=== PATIENT | female | born 1970 | race Caucasian/White ===

== ENCOUNTER 2022-01-23 12:39 | Outpatient (CLI) | payer MEDICAID, SELFPAY ==
[2022-01-23 14:34] LABS: Cholesterol* 188 mg/dL (90-199)
[2022-01-23 14:35] LABS: HDL Cholesterol* 46 mg/dL (>=50); LDL Cholesterol Calculated 116 mg/dL (<100); Triglycerides* 130 mg/dL (40-149)
[2022-01-23 15:07] LABS: TSH With Reflex to FT4* 0.581 uIU/mL (0.270-4.200)
[2022-01-23 19:20] LABS: Glucose* 109 mg/dL (60-115)
== END 2022-01-23 12:40 | disposition home or self-care (01) ==
PROVIDERS: Visit Provider Physician Assistant
DX: Z01.419 Encounter for gynecological examination (general) (routine) without abnormal findings (principal); E03.9 Hypothyroidism, unspecified; E66.01 Morbid (severe) obesity due to excess calories; Z13.6 Encounter for screening for cardiovascular disorders; Z13.1 Encounter for screening for diabetes mellitus
CPT/HCPCS: 80061; 82947; 84443

== ENCOUNTER 2022-02-20 13:53 | Outpatient (CLI) | payer MEDICAID, SELFPAY ==
--- NOTE | 2022-02-20 14:00 | CRLHL7_ITS ---
For Patients: As a result of the Century Cures Act, medical imaging exams and procedure reports are released immediately into your electronic medical record. You may view this report before your referring provider. If you have questions, please contact your health care provider. BILATERAL SCREENING MAMMOGRAM WITH COMPUTER-AIDED DETECTION TECHNIQUE: CC and MLO views were obtained. These mammographic images have been obtained using full-field digital technique. These mammographic images were interpreted with the benefit of computer-aided detection. COMPARISON FILM: 05/12/19 FINDINGS: The breasts are almost entirely fatty IMPRESSION: There is no radiographic evidence for malignancy. ASSESSMENT: BI-RADS Category 1: Negative RECOMMENDATION: Routine screening mammogram in 1 year. A lay language report of this examination will be provided to the patient. Femi Faith M.D. Diagnostic Radiologist [email or web address] CHRISSY/valdez / be/Dictated by: Femi Faith MD @ 02/21/2022 12:27:00 PM (Electronically Signed)
== END 2022-02-20 13:54 | disposition home or self-care (01) ==
LOC: MAMMO 13:54
PROVIDERS: Visit Provider Physician Assistant
DX: Z12.31 Encounter for screening mammogram for malignant neoplasm of breast (principal)
CPT/HCPCS: 77063; 77067

== ENCOUNTER 2022-03-05 09:18 | Outpatient (CLI) | payer MEDICAID, SELFPAY ==
--- NOTE | 2022-03-05 12:04 | W.ANESCHARGE ---
Anesthesia Charges Start Date/Time Anesthesia Start Date: 03/05/22 Anesthesia Start Time: 10:25 Stop Date/Time Anesthesia Stop Date: 03/05/22 Anesthesia Stop Time: 11:00 Summary Emergency: No
--- NOTE | 2022-03-05 12:20 | W.ANESCHARGE ---
Anesthesia Charges Start Date/Time Anesthesia Start Date: 03/05/22 Anesthesia Start Time: 10:25 Stop Date/Time Anesthesia Stop Date: 03/05/22 Anesthesia Stop Time: 11:00 Summary Emergency: No
== END 2022-03-05 09:19 | disposition home or self-care (01) ==
LOC: OP CLINIC 09:19
PROVIDERS: Visit Provider Surgery
DX: Z12.11 Encounter for screening for malignant neoplasm of colon (principal)
CPT/HCPCS: 00811; 00812; 45378; J2704

== ENCOUNTER 2023-01-29 07:13 | Outpatient (CLI) | payer MEDICAID, SELFPAY ==
--- NOTE | 2023-01-29 07:15 | CRLHL7_ITS ---
For Patients: As a result of the Century Cures Act, medical imaging exams and procedure reports are released immediately into your electronic medical record. You may view this report before your referring provider. If you have questions, please contact your health care provider. CLINICAL HISTORY: RIGHT FLANK PAIN COMPARISON: none TECHNIQUE: Rosales scale and color Doppler images were acquired of the kidneys. FINDINGS: Sonographic images reveal a symmetric appearance of the kidneys. There is no evidence of hydronephrosis, mass or calculus. The right kidney measures 10.8cm in length and the left kidney measures 10.4cm in length. The renal cortex appears of normal thickness. Normal color Doppler images of both kidneys. IMPRESSION: Normal renal ultrasound. Dictated by Femi Faith MD @ 01/29/2023 9:23:13 AM (Electronically Signed)
--- NOTE | 2023-01-29 08:00 | CRLHL7_ITS ---
For Patients: As a result of the Cures Act, medical imaging exams and procedure reports are released immediately into your electronic medical record. You may view this report before your referring provider. If you have questions, please contact your health care provider. Indication: RIGHT SIDED FLANK PAIN WITH LEUKOCYTOSIS Technique: Abdomen 1 view. Comparison: None. Findings: Surgical clips are present in the right upper quadrant from cholecystectomy. The liver is prominent measuring 24 cm. No renal stones. Spleen mildly prominent measuring 13.7 cm. No pleural effusion. No bowel obstruction. Impression: Hepatosplenomegaly. No renal stones. Dictated by Femi Faith MD @ 01/29/2023 9:17:23 AM (Electronically Signed)
== END 2023-01-29 07:14 | disposition home or self-care (01) ==
PROVIDERS: PCP Emergency Medicine; Visit Provider Internal Medicine Endocrinology, Diabetes & Metabolism
DX: R10.9 Unspecified abdominal pain (principal)
CPT/HCPCS: 74018; 76775

== ENCOUNTER 2023-03-12 13:09 | Emergency (ER) | payer MEDICAID, SELFPAY ==
[2023-03-12 13:18] VITALS: BP 144/84; PULSE 88; RESP 18; TEMP 36.4; O2SAT 98; BMI 33.7
[2023-03-12 13:41] LABS: Appearance Urine Clear (Clear); Bilirubin Urine Negative (Negative); Blood Urine 2+ (Negative); Color Urine Yellow (Yellow); Glucose Urine Negative (Negative); Ketones Urine Negative (Negative); Leukocyte Esterase Urine Negative (Negative); Nitrite Urine Negative (Negative); Protein Urine Negative (Negative); Specific Gravity Urine >= 1.030 (1.000-1.030); Urobilinogen Urine 0.2 (0.2-1.0)
--- NOTE | 2023-03-12 13:54 | CRLHL7_ITS ---
For Patients: As a result of the Century Cures Act, medical imaging exams and procedure reports are released immediately into your electronic medical record. You may view this report before your referring provider. If you have questions, please contact your health care provider. INDICATION: Right flank and right lower quadrant pain TECHNIQUE: Axial images were obtained from the diaphragm to the pubic symphysis. Reformats were obtained in the coronal and sagittal plane. IV Contrast: None Oral Contrast: None COMPARISON: None. FINDINGS: Lower chest: Basilar discoid atelectasis. Liver: Normal in contour with a 3 millimeter hypodense lesion which is too small for characterization. Statistically speaking, in the absence of a known primary malignancy this would likely represent an incidental finding. Gallbladder and bile ducts: Status post cholecystectomy. Spleen: Unremarkable. Normal in size without mass. Pancreas: Unremarkable. No mass or inflammation. Adrenal glands: Unremarkable. No nodules. Kidneys: Nephrolithiasis with mild right hydronephrosis and obstructing 2 millimeter stone at the right ureterovesicular junction (series 2, image 123 and series 4, image 76). Vasculature: Unremarkable. GI tract: Unremarkable. No dilated bowel or focal inflammation. Pelvis: Status post hysterectomy. Bones: Unremarkable for age. IMPRESSION: Nephrolithiasis with mild right hydronephrosis and obstructing 2 millimeter right ureterovesicular junction stone. Please note that all CT scans at this facility use dose modulation, iterative reconstruction, and/or weight-based dosing when appropriate to reduce radiation dose to as low as reasonably achievable. Dictated by Mark Pollard MD @ 03/12/2023 2:45:50 PM (Electronically Signed)
[2023-03-12 13:59] LABS: RBC Urine 25-50 (0-2)
[2023-03-12 14:00] LABS: Amorphous Sediment Urine Few; Bacteria Urine Moderate; Squamous Epithelial Cell Urine Few (None-Few)
[2023-03-12 14:03] LABS: Lactate* 2.1 mmol/L (0.5-1.9)
[2023-03-12 14:07] LABS: Basophils Percent Auto 0.3 % (0.0-3.0); Eosinophils Percent Auto 0.7 % (0.0-7.0); Hematocrit 45.4 % (33.0-51.0); Hemoglobin* 14.6 gm/dL (12.0-16.0); Immature Granulocytes Pct Auto 0.1 %; Lymphocytes Percent Auto 34.1 % (20-44); Mean Corpuscular HGB Conc 32 gm/dL (32-36); Mean Corpuscular Hemoglobin 31 pg (26-34); Mean Corpuscular Volume 96 fL (80-100); Monocytes Percent Auto 4.1 % (0.0-11.0); Neutrophils Percent Auto 60.7 % (42.0-72.0); Platelet Count* 281 K/uL (140-440); Red Blood Count 4.72 m/uL (4.00-5.20); White Blood Count* 11.34 K/uL (4.50-11.00)
[2023-03-12 14:09] LABS: Slide Review Reflex No
--- NOTE | 2023-03-12 14:13 | ED.GENADULT ---
HPI - General Adult General Chief complaint: Abdominal Pain Stated complaint: Abdominal pain Time Seen by Provider: 03/12/23 13:18 Source: patient Mode of arrival: ambulatory Limitations: no limitations History of Present Illness HPI narrative: Patient is a 53-year-old woman who had abrupt onset of right mid to lower abdominal pain with radiation to the right mid back this morning. She says that she took some ibuprofen but has continued to have pretty severe pain which comes in waves and then will settle down a little bit but has never gone completely away. She has had some nausea, no vomiting. She has no history of prior similar pain, denies prior history of kidney stones. She does have a gallbladder, she is status post appendectomy. No fevers or chills, no urinary symptoms, no diarrhea, black or bloody stools. She does smoke, denies significant alcohol use. For today with her daughter. Related Data Home Medications Medication Instructions Recorded Confirmed albuterol 90 mcg/actuation aerosol 2 spray inhalation PRN 01/23/22 03/29/22 inhaler cyclobenzaprine 10 mg tablet 10 mg PO PRN 01/23/22 03/29/22 ergocalciferol (vitamin D2) 50 mcg 1.25 mcg PO QDAY 01/23/22 03/29/22 (2,000 unit) capsule exenatide microspheres 2 mg/0.85 2 mg subcut QWEEK 01/23/22 03/29/22 mL subcutaneous auto-injector (Keysha Mantilla) indomethacin 50 mg capsule mg PO PRN 01/23/22 03/29/22 levothyroxine 200 mcg tablet mcg PO DAILY 01/23/22 03/29/22 levothyroxine 88 mcg tablet mcg PO DAILY 01/23/22 03/29/22 metformin 1,000 mg tablet 1,000 mg PO 01/23/22 03/29/22 ondansetron 4 mg disintegrating 4 mg PO Q8H 01/23/22 03/29/22 tablet phentermine 37.5 mg capsule 37.5 mg PO DIRECTED 01/23/22 03/29/22 ondansetron HCl 4 mg tablet 4 mg PO Q8H 03/02/22 03/29/22 semaglutide 1 mg/dose (4 mg/3 mL) 1 mg subcut QWEEK 03/02/22 03/29/22 subcutaneous pen injector (Ozempic) testosterone 1 % (50 mg/5 gram) 1 packet transdermal .Q Saturday03/02/22 03/29/22 transdermal gel packet Previous Rx's Medication Instructions Recorded peg 3350-electrolytes 236 240 ml PO Q10M #4,000 mL 02/15/22 gram-22.74 gram-6.74 gram-5.86 gram solution (Golytely) budesonide-formoterol HFA 160 2 inh inhalation BID #10.2 grams 03/02/22 mcg-4.5 mcg/actuation aerosol inhaler Allergies Allergy/AdvReac Type Severity Reaction Status Date / Time No Known Allergies Allergy Unknown Unverified 03/29/22 14:38 Review of Systems Status of ROS: Reports: 10 or more systems reviewed and unremarkable except as noted in History and below [facility] Medical History Smoking greater than 30 pack years ?F17.210 - Nicotine dependence, cigarettes, uncomplicated (ICD-10) Type 2 diabetes mellitus ?E11.9 - Type 2 diabetes mellitus without complications (ICD-10) Tobacco use (03/11/09) ?Z72.0 - Tobacco use (ICD-10) Stress incontinence of urine ?N39.3 - Stress incontinence (female) (male) (ICD-10) Morbid obesity (03/11/09) ?E66.01 - Morbid (severe) obesity due to excess calories (ICD-10) Hypothyroidism (03/11/09) ?E03.9 - Hypothyroidism, unspecified (ICD-10) Hyperlipidemia (06/09/10) ?E78.5 - Hyperlipidemia, unspecified (ICD-10) Carpal tunnel syndrome (03/11/09) ?G56.00 - Carpal tunnel syndrome, unspecified upper limb (ICD-10) Surgical History History of hysteroscopy ?Z98.890 - Other specified postprocedural states (ICD-10) Status post tubal ligation (03/11/09) ?Z98.51 - Tubal ligation status (ICD-10) Status post laparoscopic hysterectomy (2013) ?Z90.710 - Acquired absence of both cervix and uterus (ICD-10) Status post cystoscopy ?Z98.890 - Other specified postprocedural states (ICD-10) Status post cholecystectomy (03/11/09) ?Z90.49 - Acquired absence of other specified parts of digestive tract (ICD-10) Status post appendectomy (03/11/09) ?Z90.49 - Acquired absence of other specified parts of digestive tract (ICD-10) History of stress incontinence procedure using tension free vaginal tape (2014) ?Z98.890 - Other specified postprocedural states (ICD-10) History of section (03/11/09) ?Z98.891 - History of uterine scar from previous surgery (ICD-10) Family History Mother Diabetes Coronary artery disease Depression Uterine cancer Father Diabetes Coronary artery disease Alcohol dependence Aunt Ovarian cancer Social History Smoking Status: Current every day smoker Non-prescribed substance use: denies use Little interest or pleasure in doing things: not at all Feeling down, depressed, or hopeless: not at all Exam Narrative: Exam Narrative: Vital signs as noted above. In general, an alert, nontoxic woman, she looks somewhat uncomfortable. Head: Normocephalic, atraumatic. Eyes: Pupils are equal reactive. Extraocular movements are full. Conjunctivae are normal. ENT: Mucous membranes are moist. Throat is normal. Neck: Supple without lymphadenopathy. Heart: Regular rate and rhythm. No murmur or rub. Lungs: Clear bilaterally. No increased work of breathing, crackles or wheezes. Positive for CVA tenderness on the right. Abdomen: Soft and nondistended. She has some mid right abdominal tenderness without rebound guarding or rigidity. She does not have any tenderness over the gallbladder, negative Gomes's. Extremities: Well perfused. No edema. No calf tenderness. Pulses intact. Neurologic: Patient is alert and oriented to person and place. Speech is fluent. Face is symmetric. Moves all extremities equally. Affect: Normal. Skin: Warm and dry. Well perfused. Const: Vital Signs, click to edit/add: Vital Signs - 24 hr 03/12/23 13:18 Temperature 97.6 F Pulse Rate [Right Pulse Oximeter] 88 Respiratory Rate 18 Blood Pressure [Ri ght Upper Arm] 144/84 H Pulse Oximetry 98 Oxygen Delivery Me thod Room Air Documenting provider has reviewed patient's vital signs: yes Course Course ED Course: Following initial evaluation, an IV was placed, she was given a L normal saline, Toradol 15 mg as well as Zofran. She feels markedly improved, in fact actually thinks that symptoms have resolved. She had blood work, UA, CT of the abdomen without contrast. Diagnostic considerations included kidney stone, pyelonephritis, UTI, ovarian cyst or torsion, cholecystitis, biliary colic, among others. My clinical suspicion was most high for kidney stone given her presentation, her urinalysis did in fact show 25-50 red cells, 5-10 white blood cells. Her white blood cell count was 11.3, CRP was less than 0.5. Lactate mildly elevated at 2.1 prior to fluids. LFTs unremarkable. Repeat abdominal exam shows no significant tenderness. CT scan by my review showed mild hydronephrosis on the right, small kidney stone at the UVJ. Final radiology read as follows:FINDINGS: Lower chest: Basilar discoid atelectasis. Liver: Normal in contour with a 3 millimeter hypodense lesion which is too small for characterization. Statistically speaking, in the absence of a known primary malignancy this would likely represent an incidental finding. Gallbladder and bile ducts: Status post cholecystectomy. Spleen: Unremarkable. Normal in size without mass. Pancreas: Unremarkable. No mass or inflammation. Adrenal glands: Unremarkable. No nodules. Kidneys: Nephrolithiasis with mild right hydronephrosis and obstructing 2 millimeter stone at the right ureterovesicular junction (series 2, image 123 and series 4, image 76). Vasculature: Unremarkable. GI tract: Unremarkable. No dilated bowel or focal inflammation. Pelvis: Status post hysterectomy. Bones: Unremarkable for age. IMPRESSION: Nephrolithiasis with mild right hydronephrosis and obstructing 2 millimeter right ureterovesicular junction stone. Overall, presentation is consistent with kidney stone which is small, patient has absence of any symptoms right now and may have actually passed this stone. Would like her to strain her urine. She is not febrile, white blood cell count is essentially normal at 11.3, no left shift, CRP negative. Lactate is mildly elevated although I suspect this is more related to dehydration, I do not have anything in her presentation to raise suspicion for sepsis at this time. Reviewed with her if she develops worsening pain, fevers, chills, etcetera she should return. Otherwise, strain urine, ibuprofen or Tylenol if needed, she declines the need for anything further for pain. Urology follow-up if not improving over the next week or 2. Would expect this stone will pass without instrumentation. Vital Signs Vital signs: Initial Vital Signs Temperature 97.6 F 03/12/23 13:18 Temperature Source Temporal Artery Scan 03/12/23 13:18 Pulse Rate 88 03/12/23 13:18 Respiratory Rate 18 03/12/23 13:18 Blood Pressure 144/84 H 03/12/23 13:18 Blood Pressure Mean 104 03/12/23 13:18 Blood Pressure Position Sitting 03/12/23 13:18 Pulse Oximetry 98 03/12/23 13:18 Oxygen Delivery Method Room Air 03/12/23 13:18 Vital Signs Temperature 97.6 F 03/12/23 13:18 Pulse Rate 88 03/12/23 13:18 Respiratory Rate 18 03/12/23 13:18 Blood Pressure 144/84 H 03/12/23 13:18 Pulse Oximetry 98 03/12/23 13:18 Oxygen Delivery Method Room Air 03/12/23 13:18 Temperature 97.6 F 03/12/23 13:18 Pulse Rate 88 03/12/23 13:18 Respiratory Rate 18 03/12/23 13:18 Blood Pressure 144/84 H 03/12/23 13:18 Pulse Oximetry 98 03/12/23 13:18 Oxygen Delivery Method Room Air 03/12/23 13:18 Medical Decision Making Lab Data Labs: Lab Results 03/12/23 03/12/23 Range/Units 13:30 13:55 WBC 11.34 H (4.50-11.00) K/uL RBC 4.72 (4.00-5.20) m/uL Hgb 14.6 (12.0-16.0) gm/dL Hct 45.4 (33.0-51.0) % MCV 96 (80-100) fL MCH 31 (26-34) pg MCHC 32 (32-36) gm/dL RDW Coeff of Mackenzie 13.0 (11.5-15.5) % Plt Count 281 (140-440) K/uL Neut % (Auto) 60.7 (42.0-72.0) % Lymph % (Auto) 34.1 (20-44) % Dickenson % (Auto) 4.1 (0.0-11.0) % Eos % (Auto) 0.7 (0.0-7.0) % Baso % (Auto) 0.3 (0.0-3.0) % Neut # (Auto) 6.90 (1.7-7.0) K/uL Lymph # (Auto) 3.90 H (0.90-2.90) K/uL Dickenson # (Auto) 0.50 (0.00-0.90) K/UL Eos # (Auto) 0.10 (0.00-0.50) K/uL Baso # (Auto) 0.00 (0.00-0.30) K/uL Abs Immat Gran (auto) 0.00 (0.00-0.30) K/uL Imm/Tot Granulo (auto) 0.1 % Sodium 141 (135-149) mmol/L Potassium 3.8 (3.6-5.1) mmol/L Chloride 105 (96-114) mmol/L Carbon Dioxide 27 (20-32) mmol/L Anion Gap 9 (7-15) mEq/L BUN 19 (7-30) mg/dL Creatinine 0.7 (0.5-1.5) mg/dL Estimated Creat Clear 78.65 Estimated GFR 105 ml/min Glucose 108 (60-115) mg/dL Lactate 2.1 H (0.5-1.9) mmol/L Calcium 9.3 (8.4-10.6) mg/dL Total Bilirubin 0.5 (0.1-1.5) mg/dL Direct Bilirubin 0.0 (0.0-0.5) mg/dL AST 29 (12-35) U/L ALT 16 (4-35) U/L Alkaline Phosphatase 58 (40-150) U/L C-Reactive Protein < 0.5 L (0.5-1.0) mg/dL Total Protein 6.9 (6.0-8.3) g/dL Albumin 4.1 (3.3-5.0) g/dL Urine Color Yellow (Yellow) Urine Appearance Clear (Clear) Urine pH 6.0 (5.0-8.5) Ur Specific [place] >= 1.030 (1.000-1.030) Urine Protein Negative (Negative) Urine Glucose (UA) Negative (Negative) Urine Ketones Negative (Negative) Urine Blood 2+ A (Negative) Urine Nitrite Negative (Negative) Urine Bilirubin Negative (Negative) Urine Urobilinogen 0.2 (0.2-1.0) Ur Leukocyte Esterase Negative (Negative) Urine RBC 25-50 A (0-2) Urine WBC 5-10 A (0-5) Ur Squamous Epith Cells Few (None-Few) Amorphous Sediment Few A (None) Other Sediment (None) Urine Bacteria Moderate A (None) Discharge Plan Discharge Clinical Impression: Kidney stone on right side Patient Disposition: Home, Self-Care Condition: Improved Instructions: Kidney Stones (ED) Additional Instructions: Ibuprofen and/or Tylenol as needed for pain. Push fluids, strain urine. Return for severe uncontrolled pain, fever, other worsening. I do not anticipate the will need any further treatment for this stone, but if for some reason symptoms are persistent beyond the next week or 2, you should be seen by Urology. Prescriptions: No Action albuterol 90 mcg/actuation aerosol 2 spray inhalation PRN metformin 1,000 mg tablet 1,000 mg PO phentermine 37.5 mg capsule 37.5 mg PO DIRECTED Rx Instructions: One tab in the morning, 1 tab in the evening levothyroxine 200 mcg tablet PO DAILY levothyroxine 88 mcg tablet PO DAILY cyclobenzaprine 10 mg tablet 10 mg PO PRN Rx Instructions: for back pain/muscle spasm indomethacin 50 mg capsule PO PRN Bydureon BCise 2 mg/0.85 mL auto-injector 2 mg subcut QWEEK ergocalciferol (vitamin D2) 50 mcg (2,000 unit) capsule 1.25 mcg PO QDAY ondansetron 4 mg tablet,disintegrating 4 mg PO Q8H Ozempic 1 mg/dose (4 mg/3 mL) pen injector 1 mg subcut QWEEK testosterone 1 % (50 mg/5 gram) gel in packet 1 packet transdermal .Q Saturday ondansetron HCl 4 mg tablet 4 mg PO Q8H budesonide-formoterol 160-4.5 mcg/actuation HFA aerosol inhaler 2 inh inhalation BID Qty: 10.2 12RF peg 3350-electrolytes [Golytely] 236-22.74-6.74 -5.86 gram recon soln 240 ml PO Q10M Qty: 4000 0RF Rx Instructions: per prep instructions Follow Up/Referrals: Provider,Not a Local [Primary Care Provider] - Stand Alone Forms: [employer] Info Instructions
[2023-03-12 14:25] LABS: Albumin* 4.1 g/dL (3.3-5.0); Chloride* 105 mmol/L (96-114)
[2023-03-12 14:26] LABS: Potassium* 3.8 mmol/L (3.6-5.1); Sodium* 141 mmol/L (135-149)
[2023-03-12 14:28] LABS: Alkaline Phosphatase* 58 U/L (40-150); Anion Gap 9 mEq/L (7-15); Aspartate Amino Transferase* 29 U/L (12-35); Bilirubin Total* 0.5 mg/dL (0.1-1.5); Carbon Dioxide* 27 mmol/L (20-32); Creatinine* 0.7 mg/dL (0.5-1.5); Est. Creatinine Clearance* 78.65; Estimated Glomerular Filt Rate 105 ml/min; Total Protein* 6.9 g/dL (6.0-8.3)
[2023-03-12] MEDS: 0.9 % SODIUM CHLORIDE 1000 ml 1,000 ML IV (14:28)
[2023-03-12] MEDS: KETOROLAC 15 MG/ML inj IVP (14:28)
[2023-03-12] MEDS: ONDANSETRON 2 MG/ML inj 4 MG IVP (14:28)
[2023-03-12 14:29] LABS: Alanine Aminotransferase* 16 U/L (4-35); Blood Urea Nitrogen* 19 mg/dL (7-30); Calcium* 9.3 mg/dL (8.4-10.6); Glucose* 108 mg/dL (60-115)
[2023-03-12 14:35] LABS: C Reactive Protein* < 0.5 mg/dL (0.5-1.0)
== END 2023-03-12 15:12 | disposition home or self-care (01) ==
PROVIDERS: Emergency Provider Emergency Medicine
DX: N20.0 Calculus of kidney (principal)
CPT/HCPCS: 36415; 74176; 80048; 80076; 81001; 83605; 85025; 86140; 87086; 87186; 96374; 96375; 99284; J1885; J2405; J7030

== ENCOUNTER 2023-03-13 00:50 | Emergency (ER) | payer MEDICAID, SELFPAY ==
[2023-03-13 00:55] VITALS: BP 117/75; PULSE 98; RESP 18; TEMP 36.1; O2SAT 97
--- NOTE | 2023-03-13 01:28 | ED_ITS ---
HPI - General Adult General Time Seen by Provider: 01:29 Date Seen: 03/13/23 Chief complaint: Flank Pain Stated complaint: Abdominal Pain Time Seen by Provider: 03/13/23 01:00 Source: patient, RN notes reviewed and old records reviewed Mode of arrival: ambulatory Limitations: no limitations History of Present Illness HPI narrative: 53-year-old female who presents today with flank pain. Patient was seen yesterday with same and diagnosed with a kidney stone, CT scan at that time demonstrated a 2 mm UVJ stone, urinalysis with moderate bacteria in CBC with slight leukocytosis but no fever. Patient was discharged, returns tonight with increased pain. Patient says she has been taking Tylenol and ibuprofen every 6 hours for pain, was discharged oxycodone but did not take any. Does have some dysuria. No fever Related Data Home Medications Medication Instructions Recorded Confirmed albuterol 90 mcg/actuation aerosol 2 spray inhalation PRN 01/23/22 03/29/22 inhaler cyclobenzaprine 10 mg tablet 10 mg PO PRN 01/23/22 03/29/22 ergocalciferol (vitamin D2) 50 mcg 1.25 mcg PO QDAY 01/23/22 03/29/22 (2,000 unit) capsule exenatide microspheres 2 mg/0.85 2 mg subcut QWEEK 01/23/22 03/29/22 mL subcutaneous auto-injector (Keysha Mantilla) indomethacin 50 mg capsule mg PO PRN 01/23/22 03/29/22 levothyroxine 200 mcg tablet mcg PO DAILY 01/23/22 03/29/22 levothyroxine 88 mcg tablet mcg PO DAILY 01/23/22 03/29/22 metformin 1,000 mg tablet 1,000 mg PO 01/23/22 03/29/22 ondansetron 4 mg disintegrating 4 mg PO Q8H 01/23/22 03/29/22 tablet phentermine 37.5 mg capsule 37.5 mg PO DIRECTED 01/23/22 03/29/22 ondansetron HCl 4 mg tablet 4 mg PO Q8H 03/02/22 03/29/22 semaglutide 1 mg/dose (4 mg/3 mL) 1 mg subcut QWEEK 03/02/22 03/29/22 subcutaneous pen injector ([employer]) testosterone 1 % (50 mg/5 gram) 1 packet transdermal .Q Saturday03/02/22 03/29/22 transdermal gel packet Previous Rx's Medication Instructions Recorded peg 3350-electrolytes 236 240 ml PO Q10M #4,000 mL 02/15/22 gram-22.74 gram-6.74 gram-5.86 gram solution (Golytely) budesonide-formoterol HFA 160 2 inh inhalation BID #10.2 grams 03/02/22 mcg-4.5 mcg/actuation aerosol inhaler docusate sodium 100 mg capsule 100 mg PO BID #10 caps 03/13/23 (Colace) Allergies Allergy/AdvReac Type Severity Reaction Status Date / Time No Known Allergies Allergy Unknown Unverified 03/29/22 14:38 [facility] Medical History Smoking greater than 30 pack years ?F17.210 - Nicotine dependence, cigarettes, uncomplicated (ICD-10) Type 2 diabetes mellitus ?E11.9 - Type 2 diabetes mellitus without complications (ICD-10) Tobacco use (03/11/09) ?Z72.0 - Tobacco use (ICD-10) Stress incontinence of urine ?N39.3 - Stress incontinence (female) (male) (ICD-10) Morbid obesity (03/11/09) ?E66.01 - Morbid (severe) obesity due to excess calories (ICD-10) Hypothyroidism (03/11/09) ?E03.9 - Hypothyroidism, unspecified (ICD-10) Hyperlipidemia (06/09/10) ?E78.5 - Hyperlipidemia, unspecified (ICD-10) Carpal tunnel syndrome (03/11/09) ?G56.00 - Carpal tunnel syndrome, unspecified upper limb (ICD-10) Surgical History History of hysteroscopy ?Z98.890 - Other specified postprocedural states (ICD-10) Status post tubal ligation (03/11/09) ?Z98.51 - Tubal ligation status (ICD-10) Status post laparoscopic hysterectomy (2013) ?Z90.710 - Acquired absence of both cervix and uterus (ICD-10) Status post cystoscopy ?Z98.890 - Other specified postprocedural states (ICD-10) Status post cholecystectomy (03/11/09) ?Z90.49 - Acquired absence of other specified parts of digestive tract (ICD- 10) Status post appendectomy (03/11/09) ?Z90.49 - Acquired absence of other specified parts of digestive tract (ICD- 10) History of stress incontinence procedure using tension free vaginal tape (2014) ?Z98.890 - Other specified postprocedural states (ICD-10) History of section (03/11/09) ?Z98.891 - History of uterine scar from previous surgery (ICD-10) Family History Mother Diabetes Coronary artery disease Depression Uterine cancer Father Diabetes Coronary artery disease Alcohol dependence Aunt Ovarian cancer Social History Smoking Status: Current every day smoker Non-prescribed substance use: denies use Little interest or pleasure in doing things: not at all Feeling down, depressed, or hopeless: not at all service: No Exam Narrative: Exam Narrative: General: Well-developed and well-nourished, appears uncomfortable Head: Atraumatic and normocephalic Eyes: Pupils are equal reactive, extraocular motions intact, conjunctiva clear ENT: External nose and ears are normal, posterior pharynx without erythema or exudate Neck: No midline cervical tenderness, full spontaneous range of motion the neck, trachea midline, no adenopathy Heart: Regular rate and rhythm no murmurs or thrills Lungs: Clear to auscultation bilaterally without wheezes or crackles Abdomen: Right lower quadrant tenderness Musculoskeletal: No tenderness, deformity, or edema Neurologic: Awake, alert, and oriented x3, no gross focal neurologic deficits, cranial nerves intact as tested Psych: Mood and affect are appropriate Skin: No rashes Const: Vital Signs, click to edit/add: Vital Signs - 24 hr 03/13/23 00:55 Temperature 97.0 F L Pulse Rate [Left P ulse Oximeter] 98 Respiratory Rate 18 Blood Pressure [Ri ght Upper Arm] 117/75 Pulse Oximetry 97 Oxygen Delivery Me thod Room Air Course Course ED Course: Patient seen examined, prior records reviewed. Patient presents flank pain, known kidney stone has not taken any pain medication. Oxycodone is given and patient can be discharged if pain is well controlled. Sign out to oncoming provider. Vital Signs Vital signs: Initial Vital Signs Temperature 97.0 F L 03/13/23 00:55 Temperature Source Temporal Artery Scan 03/13/23 00:55 Pulse Rate 98 03/13/23 00:55 Pulse Rhythm Regular 03/13/23 00:55 Respiratory Rate 18 03/13/23 00:55 Blood Pressure 117/75 03/13/23 00:55 Blood Pressure Mean 89 03/13/23 00:55 Blood Pressure Position Sitting 03/13/23 00:55 Pulse Oximetry 97 03/13/23 00:55 Oxygen Delivery Method Room Air 03/13/23 00:55 Vital Signs Temperature 97.0 F L 03/13/23 00:55 Pulse Rate 98 03/13/23 00:55 Respiratory Rate 18 03/13/23 00:55 Blood Pressure 117/75 03/13/23 00:55 Pulse Oximetry 97 03/13/23 00:55 Oxygen Delivery Method Room Air 03/13/23 00:55 Temperature 97.0 F L 03/13/23 00:55 Pulse Rate 88 03/13/23 02:54 Respiratory Rate 16 03/13/23 02:54 Blood Pressure 118/62 03/13/23 02:54 Pulse Oximetry 98 03/13/23 02:54 Oxygen Delivery Method Room Air 03/13/23 02:54 Discharge Plan Discharge Clinical Impression: Calculus of distal right ureter Patient Disposition: Home w/ Parent or Adult Condition: Improved Instructions: How to Strain Your Urine (ED), Ureteral Stones (ED) Additional Instructions: Continue taking Tylenol and ibuprofen every 6 hours around the clock. Take oxycodone as needed for pain not controlled with Tylenol and ibuprofen. Follow-up with Urology, either at [facility] [place] [phone] or [place] [facility] ([facility] [phone]; [employer] [phone]) Activity Level: Activity as Tolerated Discharge Diet: Regular Prescriptions: New docusate sodium [Colace] 100 mg capsule 100 mg PO BID Qty: 10 0RF No Action albuterol 90 mcg/actuation aerosol 2 spray inhalation PRN metformin 1,000 mg tablet 1,000 mg PO phentermine 37.5 mg capsule 37.5 mg PO DIRECTED Rx Instructions: One tab in the morning, 1 tab in the evening levothyroxine 200 mcg tablet PO DAILY levothyroxine 88 mcg tablet PO DAILY cyclobenzaprine 10 mg tablet 10 mg PO PRN Rx Instructions: for back pain/muscle spasm indomethacin 50 mg capsule PO PRN Bydureon BCise 2 mg/0.85 mL auto-injector 2 mg subcut QWEEK ergocalciferol (vitamin D2) 50 mcg (2,000 unit) capsule 1.25 mcg PO QDAY ondansetron 4 mg tablet,disintegrating 4 mg PO Q8H Ozempic 1 mg/dose (4 mg/3 mL) pen injector 1 mg subcut QWEEK testosterone 1 % (50 mg/5 gram) gel in packet 1 packet transdermal .Q Saturday ondansetron HCl 4 mg tablet 4 mg PO Q8H budesonide-formoterol 160-4.5 mcg/actuation HFA aerosol inhaler 2 inh inhalation BID Qty: 10.2 12RF peg 3350-electrolytes [Golytely] 236-22.74-6.74 -5.86 gram recon soln 240 ml PO Q10M Qty: 4000 0RF Rx Instructions: per prep instructions Follow Up/Referrals: Provider,Not a Local [Primary Care Provider] - Stand Alone Forms: [employer] Info Instructions
[2023-03-13] MEDS: ONDANSETRON ODT 4 MG TAB PO (01:52)
[2023-03-13] MEDS: OXYCODONE 5 MG TABLET PO (01:52)
[2023-03-13] MEDS: DOCUSATE SODIUM 100 MG CAPSULE PO (01:58)
[2023-03-13 02:54] VITALS: BP 118/62; PULSE 88; RESP 16; O2SAT 98
== END 2023-03-13 03:15 | disposition home or self-care (01) ==
PROVIDERS: Emergency Provider Family Medicine
DX: N20.1 Calculus of ureter (principal)
CPT/HCPCS: 99283; 99284; A9270

== ENCOUNTER 2025-04-01 19:00 | Emergency (ER) | payer MEDICAID, SELFPAY ==
--- OUTSIDE RECORDS SUMMARY | 2025-04-01 19:02 | XMS_ITS ---
Author Name Interface, [id number] lity Address [address] [address] [facility] Address [address] [address] Support Name Relationship Address Phone Jurgen Trinidad Spouse Unknown Unavailabl e Allergies and Adverse Reactions Medication/Group Name Reaction Severity Date No known allergies Plan Date Type Value 02/22/20[address]ALTH SVC E ST PATIENT 20 MIN 02/14/2023 APPOINTMENT LAB 10 MIN 02/14/2023 APPOINTMENT NEW PT CONSULT 6 0 MIN 06/14/2020 APPOINTMENT GRIP BOSS - BREAST REDU CTION - BREAST REDUCTION 02/14/2023 LAB_ORDER Path peripheral blood slide review panel 02/14/2023 LAB_ORDER CBC w/ auto diff 08/26/2023 LAB_ORDER CBC w/ auto diff 08/26/2023 LAB_ORDER Path peripheral blood slide review panel Reason for Visit TELEHEALTH SVC EST PATIENT 20 MIN Encounters Date Name 06/14/2020 BMI 30+ - obesity 06/14/2020 Breast finding (find ing) 06/14/2020 Lymphocytosis 06/14/2020 Macromastia 06/14/2020 Splenomegaly 06/14/2020 Tobacco user (findin g) 06/14/2020 Type 2 diabetes gabrielle itus w/o complication Immunizations Date Name Route Dose Instructions Refusal Reason Stat us Covid-19 vaccine (Brian) Patient declined/rejected Not Administered Flu vaccine - Adult Patient declined/rejected Not Administered Diagnostic Results Date Type Test Units Lower Limit Upper Limit Result Flag Comments Status Ordered By Specimen Source Lab Address 12/31 Misc other lab See intensive care anaesthetist d 02/14 Path perip heral blood slide revie w panel Patho logy/ Cytol ogy Morph ology SEE RESULTS BELOW CASE REPORTSpe cial Hematolog y Report Case: [id number] ing Provider: Mango Manzo MD Collected :02/15/20 23 1447Order ing Location: [facility] Received: [id number] logist: Raad Perez MDSpec imen: BloodFINA L DIAGNOSIS PERIPHERA L BLOOD:1. Mild leukocyto sis reflectin g mild absolute neutrophi zuleika and lymphocyt osis2. No evidence of a monotypic B-cell or T-cell lymphocyt e populatio n by flowcytom etry3. See commentEl ectronica lly signed by Raad Perez MD on 02/18/2023 at 2:21 PMCOMMENT The lymphocyt osis has nonspecif ic features. Flow cytometry was performed andshows no evidence of a monotypic B-cell or T-cell lymphocyt e populatio n.Therefo re, the lymphocyt osis is favored to be reactive/ nonspecif ic.There are no morpholog ic features to suggest the etiology of the neutrophi zuleika.Neutr ophilia may be associate d with infectiou s diseases, steroids, and acuteinfl ammation. Clinical correlati on is recommend ed.This case was also reviewed by Freda marcelo MT, MS ([facility]).CL INICAL INFORMATI ONThe patient is a 53-year-o ld female.Pe rtinent clinical informati on: Lymphocyt osis. Please perform flow cytometry .CBC AND DIFFERENT IALHEMATO LOGY PARAMETER STested at: [facility] yRESULTS EXPECTED VALUESWBC : 13.8 4.5-11x10 00/cumm ELEVATEDR BC: 4.69 4.00-5.20 mil/cummH GB: 14.6 12-16 gm/dlHCT: 44.9 33-51%MCV : 96.0 80-100 fl NORMOCYTI CMCH: 31.1 26-34 pgMCHC: 32.5 32-36 gm/dl NORMOCHRO MICRDW: 13.0 11.5-15.5 %PLT: 292 140-440x1 000/uLMPV : 9.0 6.5-11 flRetic: 1.14 0.5-1.5%D ifferenti alAbsolut e (%) Expected (%)(x10*9 /L) (x10*9/L) Neutrophi ls: 7.6 (55.1) 1.7-7.0 (42-72%) ELEVATEDL ymphocyte s: 5.9 (42.8) 0.9-2.9 (20-44%) ELEVATEDM onocytes: 0.3 (2.2) <0.9 (0-11%)OK CROSCOPIC DESCRIPTI ONThe final diagnosis is based on microscop ic examinati on of an appropria telystain ed blood smear.SWETHA W CYTOMETRY SUMMARYB Cell Leukemia/ Lymphoma & T Cell Screen panels:In terpretat ion: No monotypic B lymphocyt es are detected. No monotypic Tlymphocy ash are detected. Clinical indicatio n for flow cytometry : Lymphocyt osis.B Cell Leukemia/ Lymphoma panelPerc ent of LymphsB cells: 9.5%T cells: 82.1%CD19 +/Minerva: 5.4%CD19+ /Lambda: 4.0%Minerva :Lambda ratio: 1.4B lymphocyt es in this analysis demonstra te normal qualitati ve expressio n of thefollow ing antigens: CD2, CD3, CD5, CD10, CD19, CD20, CD22, CD23, CD38, CD43,CD45 , CD79b, CD103, CD200, Minerva and Lambda surface light chains.Qu ality Assessmen tPolytypi c B cell events: 378Nuclea apryl cells analyzed: 7540Limit of detection (LOD): 0.3%T Cell Screen panelPerc ent of LymphsB cells (CD19+): 14.8%T cells (CD3+): 77.6%NK cells (CD3-/CD5 6+): 7.1%CD3+/ CD4+: 49.0%CD3+ /CD8+: 29.0%CD4: CD8 ratio: 1.7T lymphocyt es in this analysis demonstra te normal qualitati ve expressio n of thefollow ing antigens: CD2, CD3, CD4, CD5, CD7, CD8, CD19, CD45, CD56, TCR gammadelt a, and TRBC1.Filipe lity Assessmen tPolytypi c T cell events: 4007Nucle ated cells analyzed: 93373Kgkm t of detection (LOD): 0.4%These results and cytograms have been verified by Dr. Perez.Th is test was developed and its performan ce character istics verified by [facility]. It has not been cleared or approved by the [place] Food and DrugAdmin istration . This test is used for clinical purposes and should not beregarde d as investiga tional or for research. Analytic Flow Tech: Nadege CheathamDevorahAyad acenick, 02/15/2023 1:28 PMVerifyi ng Flow Tech: Jc Jaffelli , 02/15/2023 4:24 PMADDITIO NAL INFORMATI ONInterpr eted at [facility] - [address] [facility] [id number] FINAL Mango Manzo 02/14 WBC K/uL 3.0 8.9 13.8 High FINAL [facility] [place], [address] [place] [phone] 0 Phone: () - 02/14 HGB g/dL 11.3 15.2 14.6 FINAL [facility] [place], [address] [place] [phone] 0 Phone: () - 02/14 PLT K/uL 113.0 364.0 292 FINAL [facility] - [place], [address] [place] [phone] 0 Phone: () - 02/14 Roxie % % 43.0 74.0 55.6 FINAL [facility] [place], [address] [place] [phone] 0 Phone: () - 02/14 Roxie # (ANC) K/uL 1.6 6.6 7.7 High FINAL [facility] [place], [address] [place] [phone] 0 Phone: () - 02/14 IG % % 0.0 0.5 0.4 FINAL [facility] [place], [address] [place] [phone] 0 Phone: () - 02/14 IG # K/uL 0.0 0.03 0.05 High FINAL [facility] - [place], [address] [place] [phone] 0 Phone: () - 02/14 LY % % 14.0 41.0 38.2 FINAL [facility] - [place], [address] [place] [phone] 0 Phone: () - 02/14 MO % % 6.0 15.0 4.4 Low FINAL [facility] [place], [address] [place] [phone] 0 Phone: () - 02/14 EO % % 0.0 7.0 0.9 FINAL [facility] [place], [address] [place] [phone] 0 Phone: () - 02/14 BA % % 0.0 2.0 0.5 FINAL [facility] - [place], [address] [place] [phone] 0 Phone: () - 02/14 LY # K/uL 0.4 3.6 5.3 High FINAL [facility] [place], [address] [place] [phone] 0 Phone: () - 02/14 MO # K/uL 0.2 1.3 0.6 FINAL [facility] - [place], [address] [place] [phone] 0 Phone: () - 02/14 EO # K/uL 0.0 0.6 0.1 FINAL [facility] - [place], [address] [place] [phone] 0 Phone: () - 02/14 BA # K/uL 0.0 0.2 0.1 FINAL [facility] [place], [address] [place] [phone] 0 Phone: () - 02/14 NRBC % #/100W BC 0.0 0.2 0.0 FINAL [facility] - [place], [address] [place] [phone] 0 Phone: () - 02/14 RBC M/uL 3.9 5.1 4.69 FINAL [facility] - [place], [address] [place] [phone] 0 Phone: () - 02/14 HCT % 35.0 48.0 44.9 FINAL [facility] [place], [address] [place] [phone] 0 Phone: () - 02/14 MCV fL 80.0 104.0 95.7 FINAL [facility] [place], [address] [place] [phone] 0 Phone: () - 02/14 MCH pg 26.0 35.0 31.1 FINAL [facility] - [place], [address] [place] [phone] 0 Phone: () - 02/14 MCHC g/dL 30.0 35.0 32.5 FINAL [facility] [place], [address] [place] [phone] 0 Phone: () - 02/14 MPV fL 9.5 13.4 9.0 Low FINAL [facility] [place], [address] [place] [phone] 0 Phone: () - 02/14 RDW % 11.4 16.1 13.00 FINAL [facility] - [place], [address] [place] [phone] 0 Phone: () - 02/14 Retic ulocy te, absol benny M/uL 0.02 0.08 0.05 FINAL [facility] [place], [address] [place] [phone] 0 Phone: () - 02/14 Retic ulocy te count % 0.4 1.6 1.14 FINAL [facility] [place], [address] [place] [phone] 0 Phone: () - 02/14 Immat ure retic ulocy te fract ion, % % 0.0 16.5 8.70 FINAL [facility] [place], [address] [place] [phone] 0 Phone: () - 02/14 Retic ulocy te cellu lar hemog lobin pg 28.0 37.0 36.5 FINAL [facility] - [place], [address] [place] [phone] 0 Phone: () - Medications Date Name Route Dose Frequency Instructions Start Date End Date Status Fill Status Indication 06/14 Levothyrox ine Oral daily Take 1 tab by oral route daily active 06/14 Phentermin e Oral Take 1 tab by oral route twice daily active 02/14 Ondansetro n Oral PRN active 06/14 Metformin Oral Take 1 tab by oral route 4 tabs by oral route daily active 06/14 Cholecalci ferol Oral Take 1 tab by oral route weekly active 06/14 Testostero ne Topical Cream (Plosome Lecithin Organogel) 2.5% Apply topically three times weekly active 02/14 Semaglutid e Subcutaneo us Pen Injector weekly active 02/14 Meloxicam Oral PRN active 06/14 Cyclobenza edward Oral Take 1 tab by oral route PRN for back pain active Problems Diagnosis Status Date of Diagnosis Resolution Date Macromastia Active Tobacco user (finding) Active Breast finding (finding) Active BMI 30+ - obesity Active Type 2 diabetes mellitus w/o complication Active Splenomegaly Active Lymphocytosis Active Vital Signs Date Type Value 06/14/2020 Body Temperature 97.10 06/14/2020 Heart Beat 88.00 06/14/2020 Oxygen Saturation 97.00 06/14/2020 Intravascular Systolic 114 06/14/2020 Intravascular Diastolic 80 06/14/2020 BSA 2.02 06/14/2020 Weight 222.00 06/14/2020 Height 63.00 06/14/2020 BMI 39.33 06/14/2020 Pain Scale 0.00 02/14/2023 BMI 34.58 02/14/2023 BSA 1.91 02/14/2023 Oxygen Saturation 95.00 02/14/2023 Body Temperature 97.10 02/14/2023 Heart Beat 108.00 02/14/2023 Respiratory Rate 16.00 02/14/2023 Intravascular Systolic 122 02/14/2023 Intravascular Diastolic 70 02/14/2023 Pain Scale 0.00 02/14/2023 Weight 195.20 02/14/2023 Height 63.00 02/22/2023 Height 63.00 02/22/2023 Pain Scale 0.00
--- OUTSIDE RECORDS SUMMARY | 2025-04-01 19:02 | XMS_ITS ---
Author Name Interface, [id number] lity Address [address] [place], [place] [address] [address] [facility] Address [address] [place], [place] [address] [place] [address] Support Name Relationship Address Phone Jurgen Trinidad Spouse Unknown Unavailabl e Allergies and Adverse Reactions Plan Reason for Visit Encounters Medications Problems Vital Signs Notes Section
--- OUTSIDE RECORDS SUMMARY | 2025-04-01 19:02 | XMS_ITS | CCD ---
Author Name Interface, [id number] lity Address [address] [facility] [address] Organization [facility] Address [address] [facility] [address] Care Team Providers Care Editor Producer Name Role Phone Mango Manzo MD Unavailable Unavailable Allergies and Adverse Reactions Medication/Group Name Reaction Severity Date No known allergies Reason for Visit TELEHEALTH SVC EST PATIENT 20 MIN Medications Date Name Route Dose Frequency Instructions Start Date End Date Status Fill Status Indication 06/14 Cholecal ciferol Oral Take 1 tab by oral route weekly active 06/14 Levothyr oxine Oral daily Take 1 tab by oral route daily active 02/14 Semaglut rambo Subcutan eous Pen Injector weekly active 02/14 Ondanset jo Oral PRN active 06/14 Cycloben zaprine Oral Take 1 tab by oral route PRN for back pain active 06/14 Metformi n Oral Take 1 tab by oral route 4 tabs by oral route daily active 06/14 Phenterm ine Oral Take 1 tab by oral route twice daily active 06/14 Testoste yelena Topical Cream (Plosome Lecithin Organoge l) 2.5% Apply topically three times weekly active 06/14 Levothyr oxine Oral Take 1 tab by oral route daily inactive 02/14 Meloxica m Oral PRN active Problems Diagnosis Status Date of Diagnosis Resolution Date Macromastia Active Tobacco user (finding) Active Breast finding (finding) Active BMI 30+ - obesity Active Type 2 diabetes mellitus w/o complication Active Splenomegaly Active Lymphocytosis Active Social History Date Name Value 02/14/2023 Sex Female
--- OUTSIDE RECORDS SUMMARY | 2025-04-01 19:02 | XMS_ITS | Clinical Summary ---
Author Organization [facility] Address [address] [place] [address] Care Team Providers Care Soda Drier Feeder Name Role Phone Travis Varner MD Primary Care Provider [phone] Allergies No known active allergies Medications IBUPROFEN 800 MG TAB Take one tablet three times daily with food as needed for pain 50 1 5 Active TRAZODONE 50 MG TAB one to two tabs PRN at HS ? 0 5 Active VICODIN 5 MG-500 MG TAB Take 1-2 tablets every 6 hours as needed for pain 25 0 7 Active IMITREX 50 MG TAB take 2 tablets (100mg) by oral route x 1 dose with fluids as early as possible after the onset of a migraine attack; if headache returns, the dose may be repeated after 2 hours, not to exceed a total daily dose of 200mg. 6 6 7 Active CITALOPRAM 40 MG TAB take 1 tablet (40mg) by oral route once daily 30 0 7 Active VICODIN 5 MG-500 MG TABIndications:D ysmenorrhea take 1 tablet by oral route every 4-6 hours as needed for pain 20 0 7 Active semaglutide (Ozempic) 2 mg/dose (8 mg/3 mL) subcutaneous pen Inject 2 mg subcutaneous once weekly. Active ALBUTEROL SULFATE INHL Inhale 2 Puffs by mouth once daily if needed. Active levothyroxine (SYNTHROID) 175 mcg tablet Take 175 mcg by mouth once daily. Active vitamin A/vitamin D2 (VITAMIN A-ERGOCALCIFEROL (D2) ORAL) Take 1 Capsule by mouth once weekly. Active metFORMIN (GLUCOPHAGE) 500 mg tablet Take 2,000 mg by mouth once daily. Active phentermine (ADIPEX-P) 37.5 mg tablet Take 37.5 mg by mouth two times daily. Active testosterone (FORTESTA) 10 mg/0.5 gram /actuation glpm Apply on dry, clean, hairless skin every Saturday, Saturday and Saturday. Active Active Problems Problem Noted Date Diagnosed Date BACK PAIN 02/20/2005 DISCOMFORT, VISUAL 10/08/1996 Encounters Date Type Department Care Team Description 01/19/2025 9:30 AM CDT Office Visit [facility] [address] [facility] [address] [place] [address] Sharon Velez PA Consult (Excess skin of abdomen ) 01/19/2025 Travel 01/12/2025 Transcribe Orders [facility] 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 Gender Identity Not on file Sexual Orientation Not on file Obstetrics History Last Filed Vital Signs Vital Sign Reading Time Taken Comments Blood Pressure 104/70 01/19/2025 9:46 AM CDT Pulse 88 01/19/2025 9:46 AM CDT Temperature 36.3 C (97.4 F) 01/15/2007 9:30 AM CDT Respiratory Rate - - Oxygen Saturation 97% 01/19/2025 9:46 AM CDT Inhaled Oxygen Concentration - - Weight 87.5 kg (192 lb 14.4 oz) 01/19/2025 9:46 AM CDT Height 161 cm (5' 3.39) 01/19/2025 9:46 AM CDT Body Mass Index 33.76 01/19/2025 9:46 AM CDT Plan of Treatment Health Maintenance Due Date Last Done Comments Tetanus booster 01/19/1983 Depression screening for age 12+ 1984 HIV for age 15-65 01/19/1987 Hepatitis C screening for ag e 18-79 01/19/1990 Hepatitis B series for 19+ ( 1 of 3 - 19+ 3-dose series) 01/19/1991 Pneumococcal series for age 50+ (1 of 2 - PCV) 01/19/1991 Pap test for age 21-65 03/11/2012 9, 03/11/2009, 01/12/2005, Additional history exists Colonoscopy through age 75 01/19/2017 Lipids for age 45-75 01/19/2017 01/12/2005, 01/13/20 04 Mammogram for age 45-75 01/19/2017 Zoster (shingles) series for age 50+ (1 of 2) 01/19/2022 Influenza Vaccine (#1) 2025 BMI (ht and wt on same day) for age 18+ 01/19/2026 01/19/2025 RSV vaccine for adults or (1 - 1-dose 75+ series) 01/19/2047 Procedures Procedure Name Priority Date/Time Associated Diagnosis Comments HPV HIGH RISK Timed 03/11/2009 1:40 PM CDT LIPID PANEL Timed 01/12/2005 10:25 AM CDT from Last 3 Months or Most Recently Relevant to Health Maintenance Results * HPV THIN PREP (03/11/2009 1:40 PM CDT) SPECIMEN/SOUR CE Cervix [facility] HPV RESULTS High/Interm ediate risk HPV not present. Types tested include: 16,18,31,33 ,35,39,45,5 1,52,56,58, 59,68 Methodology : x.aiene Hybrid Capture II [facility] 03/11/2009 1:40 PM CDT 03/15/2009 1:40 PM CDT us Jelani Everett MD MICROBIOLOGY Final Result [facility] INTERNAL ZIP [phone] [address] * (ABNORMAL) LIPID PANEL (01/12/2005 10:25 AM CDT) CHOLESTEROL,TOTAL 169 110 - 199 mg/dL [facility] TRIGLYCERIDES 96 40 - 149 mg/dL [facility] HDL CHOLESTEROL 35(L) >40 mg/dL [facility] CHOL/HDL RATIO 4.83(H) <4.51 [facility] LDL CHOLESTEROL 115 <131 mg/dL [facility] PATIENT STATUS Fasting [facility] 01/12/2005 10:2 5 AM CDT 01/12/2005 1:43 PM CDT us Travis Varner MD CHEMISTRY Final Res ult Performing Organization Address City/[facility]/ZIP Co de Phone Number [facility] INTERNAL ZIP [phone] [address] from Last 3 Months or Most Recently Relevant [place] [address] [facility] Care Teams Soda Drier Feeder Relationship Specialty Start Date End Date Travis Varner MD PCP - General 05/14/05
[2025-04-01 19:17] VITALS: BP 130/79; PULSE 86; RESP 20; TEMP 36.7; O2SAT 96; BMI 32.4
--- NOTE | 2025-04-01 19:42 | ED.GENADULT ---
HPI - General Adult General Time Seen by Provider: 19:42 Date Seen: 04/01/25 Chief complaint: Dental/Oral/Mouth Injury/Pain Stated complaint: R face numbness with poss. tooth issue Time Seen by Provider: 04/01/25 19:43 Source: patient Mode of arrival: ambulatory Limitations: no limitations History of Present Illness HPI narrative: Nelia is a 55-year-old female with hyperlipidemia, diabetes mellitus type 2, obesity, hypothyroidism, nephrolithiasis presents emerged department via private car with oral pain. Patient does have a history of periodontal disease, she is a current smoker, she developed increased pain and swelling to her right lower molar yesterday while eating. She feels that tooth has loosened, she has been taking Advil for the pain which has helped. She noticed this morning that there was some numbness to her right lower chin area associated with the pain. She has been putting cold packs on the chin area for some of the swelling. She denies any fevers or chills. She does have some pain on the right anterior neck area. No redness. No trouble swallowing or breathing. She denies any ear pain. Patient is going to follow-up with a primary dental provider. Related Data Home Medications ?Medication ?Instructions ?Recorded ?Confirmed albuterol 90 mcg/actuation aerosol 2 spray inhalation PRN 01/23/22 03/29/22 inhaler ergocalciferol (vitamin D2) 50 mcg 1.25 mcg PO QDAY 01/23/22 04/01/25 (2,000 unit) capsule exenatide microspheres 2 mg/0.85 2 mg subcut QWEEK 01/23/22 03/29/22 mL subcutaneous auto-injector (Keysha Mantilla) indomethacin 50 mg capsule mg PO PRN 01/23/22 03/29/22 levothyroxine 200 mcg tablet mcg PO DAILY 01/23/22 03/29/22 levothyroxine 88 mcg tablet mcg PO DAILY 01/23/22 03/29/22 metformin 1,000 mg tablet 1,000 mg PO 01/23/22 03/29/22 ondansetron 4 mg disintegrating 4 mg PO Q8H 01/23/22 03/29/22 tablet phentermine 37.5 mg capsule 37.5 mg PO DIRECTED 01/23/22 04/01/25 ondansetron HCl 4 mg tablet 4 mg PO Q8H 03/02/22 03/29/22 semaglutide 1 mg/dose (4 mg/3 mL) 1 mg subcut QWEEK 03/02/22 04/01/25 subcutaneous pen injector (Ozempic) testosterone 1 % (50 mg/5 gram) 1 packet transdermal .Q Saturday03/02/22 03/29/22 transdermal gel packet Previous Rx's ?Medication ?Instructions ?Recorded peg 3350-electrolytes 236 240 ml PO Q10M #4,000 mL 02/15/22 gram-22.74 gram-6.74 gram-5.86 gram solution (Golytely) budesonide-formoterol HFA 160 2 inh inhalation BID #10.2 grams 03/02/22 mcg-4.5 mcg/actuation aerosol inhaler Allergies Allergy/AdvReac Type Severity Reaction Status Date / Time No Known Allergies Allergy Unknown Verified 04/01/25 19:16 Review of Systems Status of ROS: Reports: 10 or more systems reviewed and unremarkable except as noted in History and below [facility] Medical History Smoking greater than 30 pack years ?F17.210 - Nicotine dependence, cigarettes, uncomplicated (ICD-10) Type 2 diabetes mellitus ?E11.9 - Type 2 diabetes mellitus without complications (ICD-10) Tobacco use (03/11/09) ?Z72.0 - Tobacco use (ICD-10) Stress incontinence of urine ?N39.3 - Stress incontinence (female) (male) (ICD-10) Morbid obesity (03/11/09) ?E66.01 - Morbid (severe) obesity due to excess calories (ICD-10) Hypothyroidism (03/11/09) ?E03.9 - Hypothyroidism, unspecified (ICD-10) Hyperlipidemia (06/09/10) ?E78.5 - Hyperlipidemia, unspecified (ICD-10) Carpal tunnel syndrome (03/11/09) ?G56.00 - Carpal tunnel syndrome, unspecified upper limb (ICD-10) Surgical History History of hysteroscopy ?Z98.890 - Other specified postprocedural states (ICD-10) Status post tubal ligation (03/11/09) ?Z98.51 - Tubal ligation status (ICD-10) Status post laparoscopic hysterectomy (2013) ?Z90.710 - Acquired absence of both cervix and uterus (ICD-10) Status post cystoscopy ?Z98.890 - Other specified postprocedural states (ICD-10) Status post cholecystectomy (03/11/09) ?Z90.49 - Acquired absence of other specified parts of digestive tract (ICD-10) Status post appendectomy (03/11/09) ?Z90.49 - Acquired absence of other specified parts of digestive tract (ICD-10) History of stress incontinence procedure using tension free vaginal tape (2014) ?Z98.890 - Other specified postprocedural states (ICD-10) History of section (03/11/09) ?Z98.891 - History of uterine scar from previous surgery (ICD-10) Family History Mother Diabetes Coronary artery disease Depression Uterine cancer Father Diabetes Coronary artery disease Alcohol dependence Aunt Ovarian cancer Social History Smoking Status: Current every day smoker Non-prescribed substance use: denies use service: No Exam Narrative: Exam Narrative: General: No obvious distress sitting comfortably HEENT: Pupils equal round reactive to light, TM within normal limits Oropharynx: Multiple dental caries, 1st right lower molar, tender to percussion significant dental benjy present with loss of the based of the tooth, no appreciable dental abscess, mild glucose swelling. Mild decrease in sensation to the inferior alveolar and mental nerve distribution. Patient can actively open and close her mouth with no difficulty. Tender to palpation the right submandibular lymph node. Lungs: Clear Heart: Normal sinus rhythm Const: Vital Signs, click to edit/add: Vital Signs - 24 hr 04/01/25 19:17 Temperature 98.1 F Pulse Rate [Pulse Oximeter] 86 Respiratory Rate 20 Blood Pressure [Ri ght Upper Arm] 130/79 Pulse Oximetry 96 Oxygen Delivery Me thod Room Air Course Course ED Course: ED course: 7:30 PM: aidet performed. Vitals are normal at this time. Based on history and physical exam no further imaging will be obtained, suspect dental infection with and edema compressing the mental and inferior alveolar nerve distribution, no other significant findings. Plan to treat with Augmentin 875-125 mg twice daily over the next 10 days, continue with Tylenol and Motrin every 6 hours, cold compresses to the area, head elevation, follow-up with a dental care provider over the next week. Return if worsened symptoms. Vital Signs Vital signs: Initial Vital Signs Temperature 98.1 F 04/01/25 19:17 Temperature Source Temporal Artery Scan 04/01/25 19:17 Pulse Rate 86 04/01/25 19:17 Respiratory Rate 20 04/01/25 19:17 Blood Pressure 130/79 04/01/25 19:17 Blood Pressure Mean 96 04/01/25 19:17 Pulse Oximetry 96 04/01/25 19:17 Oxygen Delivery Method Room Air 04/01/25 19:17 Vital Signs Temperature 98.1 F 04/01/25 19:17 Pulse Rate 86 04/01/25 19:17 Respiratory Rate 20 04/01/25 19:17 Blood Pressure 130/79 04/01/25 19:17 Pulse Oximetry 96 04/01/25 19:17 Oxygen Delivery Method Room Air 04/01/25 19:17 Temperature 98.1 F 04/01/25 19:17 Pulse Rate 86 04/01/25 19:17 Respiratory Rate 20 04/01/25 19:17 Blood Pressure 130/79 04/01/25 19:17 Pulse Oximetry 96 04/01/25 19:17 Oxygen Delivery Method Room Air 04/01/25 19:17 Discharge Plan Discharge Clinical Impression: Dental infection, Nerve compression Patient Disposition: Home, Self-Care Instructions: Toothache (ED) Additional Instructions: Follow-up with a dental provider over the next week for ED follow up. Augmentin 875-125mg twice daily for 10 days, Tylenol and/or Motrin every 6 hours as needed for pain. Return if worsening symptoms. Activity Level: No Restrictions Prescriptions: No Action albuterol 90 mcg/actuation aerosol 2 spray inhalation PRN metformin 1,000 mg tablet 1,000 mg PO phentermine 37.5 mg capsule 37.5 mg PO DIRECTED Rx Instructions: One tab in the morning, 1 tab in the evening levothyroxine 200 mcg tablet PO DAILY levothyroxine 88 mcg tablet PO DAILY indomethacin 50 mg capsule PO PRN Bydureon BCise 2 mg/0.85 mL auto-injector 2 mg subcut QWEEK ergocalciferol (vitamin D2) 50 mcg (2,000 unit) capsule 1.25 mcg PO QDAY ondansetron 4 mg tablet,disintegrating 4 mg PO Q8H Ozempic 1 mg/dose (4 mg/3 mL) pen injector 1 mg subcut QWEEK testosterone 1 % (50 mg/5 gram) gel in packet 1 packet transdermal .Q Saturday ondansetron HCl 4 mg tablet 4 mg PO Q8H budesonide-formoterol 160-4.5 mcg/actuation HFA aerosol inhaler 2 inh inhalation BID Qty: 10.2 12RF peg 3350-electrolytes [Golytely] 236-22.74-6.74 -5.86 gram recon soln 240 ml PO Q10M Qty: 4000 0RF Rx Instructions: per prep instructions Follow Up/Referrals: Provider,Not a Local [Primary Care Provider, Family Practice] Stand Alone Forms: MyHealth Info Instructions
--- OUTSIDE RECORDS SUMMARY | 2025-04-01 20:08 | XMS_ITS | CCD ---
Author Name Interface, [id number] lity Address [address] [facility] [address] [address] Organization [facility] Address [address] [facility] [address] [place] [address] Care Team Providers Care Defence [employer] Member Other Ranks Name Role Phone Mango Manzo MD Unavailable [...] tab by oral route daily active 02/14 Ondanset jo Oral PRN active 02/14 Meloxica m Oral PRN active 06/14 Cycloben zaprine Oral Take 1 tab by oral route PRN for back pain active 06/14 Phenterm ine Oral Take 1 tab by oral route twice daily active 02/14 Semaglut rambo Subcutan eous Pen Injector weekly active 06/14 Testoste yelena Topical Cream (Plosome Lecithin Organoge l) 2.5% Apply topically three times weekly active 06/14 Levothyr oxine Oral Take 1 tab by oral route daily inactive 06/14 Metformi n Oral Take 1 tab by oral route 4 tabs by oral route daily active Problems Diagnosis Status Date of Diagnosis Resolution Date Macromastia Active Tobacco user (finding) Active Breast finding (finding) Active BMI 30+ - obesity Active Type 2 diabetes mellitus w/o complication Active Splenomegaly Active Lymphocytosis Active Social History Date Name Value 02/14/2023 Sex Female
--- OUTSIDE RECORDS SUMMARY | 2025-04-01 20:08 | XMS_ITS ---
Author Name Interface, [id number] lity Address [address] [facility] [address] [place] [address] [facility] Address [address] [facility] [address] [address] Support Name Relationship Address Phone Jurgen Trinidad Spouse Unknown Unavailabl e Allergies and Adverse Reactions Medication/Group Name Reaction Severity Date No known allergies Plan Date Type Value 02/22/[address] [facility] E [facility] PATIENT 20 MIN 02/14/2023 APPOINTMENT LAB 10 MIN 02/14/2023 APPOINTMENT NEW PT CONSULT 6 0 MIN 06/14/2020 APPOINTMENT MATERIAL ASSISTANT - BREAST REDU CTION - BREAST REDUCTION [...] Lab Address 12/31 Misc other lab See safety and occupational health manager d 02/14 Path perip heral blood slide revie w panel Patho logy/ Cytol ogy Morph ology SEE RESULTS BELOW CASE REPORTSpe cial Hematolog y Report Case: [id number] ing Provider: Mango Manzo MD Collected :02/15/20 23 1447Order ing Location: [facility] Received: [id number] logist: Raad [...] also reviewed by Freda marcelo [place], MS ([facility]).CL INICAL INFORMATI ONThe patient is a 53-year-o ld female.Pe rtinent clinical informati on: Lymphocyt osis. Please perform flow cytometry .CBC AND DIFFERENT IALHEMATO LOGY PARAMETER STested at: [facility]-Central Laborator yRESULTS EXPECTED VALUESWBC [...] 0.9-2.9 (20-44%) ELEVATEDM onocytes: 0.3 (2.2) <0.9 (0-11%)NV CROSCOPIC DESCRIPTI ONThe final diagnosis is based [...] ent of LymphsB cells: 9.5%T cells: 82.1%CD19 +/[place]: 5.4%CD19+ /Lambda: 4.0%[place] :Lambda ratio: 1.4B lymphocyt es in this analysis demonstra te normal qualitati ve expressio n of thefollow ing antigens: CD2, CD3, CD5, CD10, CD19, CD20, CD22, CD23, CD38, CD43,CD45 , CD79b, CD103, CD200, [place] and Lambda surface light chains.Qu ality Assessmen [...] T cell events: 4007Nucle ated cells analyzed: 69915Nzxb t of detection (LOD): 0.4%These results and cytograms have been verified by Dr. Perez.Th is test was developed and its performan ce character istics verified by [facility]. It has not been cleared or approved by the [place] Food and DrugAdmin istration . This test is used for clinical purposes and should not beregarde d as investiga tional or for research. Analytic Flow Tech: Nadege CheathamDevorahAyad acenick, 02/15/2023 1:28 PMVerifyi ng Flow Tech: Jc Jaffelli , 02/15/2023 4:24 PMADDITIO NAL INFORMATI ONInterpr eted at [facility] - [address] [facility] [id number] FINAL Mango Manzo 02/14 WBC K/uL 3.0 8.9 13.8 High FINAL [facility] [place], [address] [place] [phone] 0 Phone: () - 02/14 HGB g/dL 11.3 15.2 14.6 FINAL [facility] [place], [address] [place] [phone] 0 Phone: () - 02/14 PLT K/uL 113.0 364.0 292 FINAL [facility] [place], [address] [place] [phone] 0 Phone: () - 02/14 Roxie % % 43.0 74.0 55.6 FINAL [facility] [place], [address] [place] [phone] 0 Phone: () - 02/14 Roxie # (ANC) K/uL 1.6 6.6 7.7 High FINAL [facility] [place], [address] [place] [phone] 0 Phone: () - 02/14 IG % % 0.0 0.5 0.4 FINAL [facility] [place], [address] [place] [phone] 0 Phone: () - 02/14 IG # K/uL 0.0 0.03 0.05 High FINAL [facility] [place], [address] [place] [phone] 0 Phone: () - 02/14 LY % % 14.0 41.0 38.2 FINAL [facility] [place], [address] [place] [phone] 0 Phone: () - 02/14 MO % % 6.0 15.0 4.4 Low FINAL [facility] [place], [address] [place] [phone] 0 Phone: () - 02/14 EO % % 0.0 7.0 0.9 FINAL [facility] [place], [address] [place] [phone] 0 Phone: () - 02/14 BA % % 0.0 2.0 0.5 FINAL [facility] [place], [address] [place] [phone] 0 Phone: () - 02/14 LY # K/uL 0.4 3.6 5.3 High FINAL [facility] [place], [address] [place] [phone] 0 Phone: () - 02/14 MO # K/uL 0.2 1.3 0.6 FINAL [facility] [place], [address] [place] [phone] 0 Phone: () - 02/14 EO # K/uL 0.0 0.6 0.1 FINAL [facility] [place], [address] [place] [phone] 0 Phone: () - 02/14 BA # K/uL 0.0 0.2 0.1 FINAL [facility] [place], [address] [place] [phone] 0 Phone: () - 02/14 NRBC % #/100W BC 0.0 0.2 0.0 FINAL [facility] [place], [address] [place] [phone] 0 Phone: () - 02/14 RBC M/uL 3.9 5.1 4.69 FINAL [facility] [place], [address] [place] [phone] 0 Phone: () - 02/14 HCT % 35.0 48.0 44.9 FINAL [facility] [place], [address] [place] [phone] 0 Phone: () - 02/14 MCV fL 80.0 104.0 95.7 FINAL [facility] [place], [address] [place] [phone] 0 Phone: () - 02/14 MCH pg 26.0 35.0 31.1 FINAL [facility] [place], [address] [place] [phone] 0 Phone: () - 02/14 MCHC g/dL 30.0 35.0 32.5 FINAL [facility] [place], [address] [place] [phone] 0 Phone: () - 02/14 MPV fL 9.5 13.4 9.0 Low FINAL [facility] [place], [address] [place] [phone] 0 Phone: () - 02/14 RDW % 11.4 16.1 13.00 FINAL [facility] [place], [address] [place] [phone] 0 Phone: () - 02/14 Retic ulocy te, absol benny M/uL 0.02 0.08 0.05 FINAL [facility] [place], [address] [place] [phone] 0 Phone: () - 02/14 Retic ulocy te count % 0.4 1.6 1.14 FINAL [facility] [place], [address] [place] [phone] 0 Phone: () - 02/14 Immat ure retic ulocy te fract ion, % % 0.0 16.5 8.70 FINAL [facility] [place], [address] [place] [phone] 0 Phone: () - 02/14 Retic ulocy te cellu lar hemog lobin pg 28.0 37.0 36.5 FINAL [facility] [place], [address] [place] [phone] 0 Phone: () - Medications Date Name [...] 02/14/2023 BMI 34.58 02/14/2023 BSA 1.91 02/14/2023 Body Temperature 97.10 02/14/2023 Heart Beat 108.00 02/14/2023 Respiratory Rate 16.00 02/14/2023 Oxygen Saturation 95.00 02/14/2023 Intravascular Systolic 122 02/14/2023 Intravascular Diastolic 70 02/14/2023 Pain Scale 0.00 02/14/2023 Weight 195.20 02/14/2023 Height 63.00 02/22/2023 Height 63.00 02/22/2023 Pain Scale 0.00
--- OUTSIDE RECORDS SUMMARY | 2025-04-01 20:08 | XMS_ITS | CCD ---
Author Name Interface, [id number] lity Address [address] [facility] [address] [address] Organization [facility] Address [address] [facility] [address] [address] Care Team Providers Care Director Speech And Hearing Name Role Phone Mango Manzo MD Unavailable [...]
--- OUTSIDE RECORDS SUMMARY | 2025-04-01 20:08 | XMS_ITS ---
Author Name Interface, T2Mdoijca lity Address [address] [address] [facility] Address [address] [address] Support Name Relationship Address Phone Jurgen Trinidad Spouse Unknown Unavailabl e Allergies and Adverse Reactions Medication/Group Name Reaction Severity Date No known allergies Plan Date Type Value 02/22/20[address] [facility] E [facility] PATIENT 20 MIN 08/26/2023 LAB_ORDER CBC w/ auto diff 08/26/2023 LAB_ORDER Path peripheral blood slide review panel Reason for Visit TELEHEALTH SVC EST PATIENT 20 MIN Encounters Date Name 02/22/2023 Lymphocytosis 02/22/2023 Splenomegaly Medications Date Name Route Dose Frequency Instructions [...] Lymphocytosis Active Vital Signs Date Type Value 02/22/2023 Height 63.00 02/22/2023 Pain Scale 0.00 Notes Section * Med Onc Follow-up Note <html><head></head><body><div style=text-align:center><span class=clinicalNoteMacroHighlighted id=[id number] macroname= PracticeLetterhead spantype=macro title=#PracticeLetterhead><img isvbhq=488 [email or web address]=[id number]" vmfci=611></span>
</div>
<strong>Patient Name</strong>: <span class=clinicalNoteMacroHighlighted id=[id number] macroname=PatientName spantype=macro title=#PatientName">CATRACHO TRINIDAD</span> &n bsp; &n bsp; &n bsp; &n bsp; &n bsp;
<strong>MRN</strong>: <span class=clinicalNoteMacroHighlighted id=[id number]" macroname=PatientMRN spantype=macro title=#PatientMRN>[id number]</span> &am p;nbsp; &am p;nbsp; &am p;nbsp; &am p;nbsp; &am p;nbsp; &am p;nbsp;
<strong>Date Of </strong>: <span class=clinicalNoteMacroHighlighted id= [id number] macroname=PatientDateOfBirth spantype=macro" title=#PatientDateOfBirth>1970</span> &a mp;nbsp;
<strong>Today's Provider: </strong><span cla ss=clinicalNoteMacroHighlighted id=[id number] macroname=MyName spantype=macro title=#MyName>Mango Manzo MD</span>
<strong>Date of Service: </strong><span class=clinicalNoteMacroHighlighted id=[id number] macroname=EffectiveDate spantype=macro title=#EffectiveDate>02/22/2023</span> &nb sp; &nb sp; &nb sp; &nb sp; &nb sp;
<strong>Attending Hermilo hernández: </strong><span class=clinicalNoteMacroHighlighted id =[id number] macroname=AttendingPhysician spantype=macro" title=#AttendingPhysician>Mango Manzo (Hematology/Oncology)</span>
& lt;strong>Referring Provider:</strong> <span class=clinicalNoteMacroHighl ighted id=[id number] macroname=ReferringPhysician spantype =macro title=#ReferringPhysician>Rochelle Wiley PA-C, Dorota Alfaro DNP</span>

<div style=text-align:center><span style=font- size:14px><strong>HEMATOLOGY/ MEDICAL ONCOLOGY FOLLOW UP VISIT&l t;/strong></span>
</div><div>

<span class= clinicalNoteSectionShowSeparators clinicalNoteSectionVisible id=[id number] internalbreaksection=false originalname=Reason for visit recognizeconcepts=true spantype=section suppressempty=false>Reason for Vi sit</span>
Lymphocytosis

Telemedicine visit using VSee (audio and video)
<span class=clinicalNoteSectionShowSeparators clinicalNoteSectionVisible" id=[id number] internalbreaksection=false originalname="Impression recognizeconcepts=true spantype=section suppressempty=&q uot;false>Assessment</span>
This is a very pleasant 53-year-old woman with&a mp;nbsp;incidentally found mild lymphocytosis with absolute lymphocyte count in the 5-6 range. I explained to her that lymphocytosis could be reactive in the setting of a viral infection or autoimmune condition or due to overproduction of atypical lymphocytes by the bone marrow or a lymphoproliferative neoplasm. We performed a flow cytometry to differentiate between these 2 conditions, and it did not show any monotypic lymphocytes, indicating her lymphocytosis is reactive. She does also have mild splenomegaly which is nonspecific but we need to keep an eye on it
<span class=clinicalNoteSectionShowSeparators clinicalNoteSectionVisible id=secti [id number] internalbreaksection=false originalname=Recommendation/ Plan recognizeconcepts=true spantype=section suppressempty=false >Plan</span>
1. No further work-up at this time
2. Repeat CBC with differentials and flow cytometry in 6 months
3. Telemedicinevisit to review labs
4. She will let me know if she develops persistent& amp;nbsp;systemic symptoms, adenopathy, or symptoms of splenomegaly.

<span style=font-size:12px><span style=font-family:[place],Helvetica,sans-serif></span></span>
<span class=clinicalNoteSectionShowSeparators clinicalNoteSectionVisible id=[id number] internalbreaksection=false" originalname=Med Onc Advanced Care Planning recognizeconcepts=true span type=section suppressempty=false>Advanced Care Planning</span>
Not discussed at this visit.
<span class=clinicalNoteSectionShowSeparators cl inicalNoteSectionVisible id=[id number] internalbreaksection= false originalname=Pain Plan This Visit recognizeconcepts=true spantyp e=section suppressempty=false>Pain Scale on Today's Visit</span>
<span class=clinicalNoteMacroHighlighted id=[id number]" macroname=PatientPainScale parameters=LookBackDays:0,ValueIfNull:Not recorded on today spantype=macro>Not recorded on today's visit</span>
<span class=clinicalNoteSectionShowSeparators clinicalNoteSectionVisible id= [id number] internalbreaksection=false originalname=Pain Plan This Visit recognizeconcepts=true spantype=section suppressempty=&quot ;false>Pain Plan on Today's Visit</span>
<span class=clinicalNo teMacroHighlighted id=[id number] macroname=PatientPainCarePlan&q uot; parameters=LookBackDays:0,ShowComments:Yes,ValueIfNull:No pain plan indicated for today" spantype=macro>No pain plan indicated for today's visit</span>
<span class=clinicalNoteSectionShowSeparators clinicalNoteSectionVisible id=[id number] internalbreaksection=false originalname=Smoking Status recognizeconcepts=true spantype=section suppressempty=false">Smoking Status</span>
<span class=clinicalNoteMacroHighlighted id=[id number] macroname=PatientSmokingStatus parameters=V alueIfNull:Not recorded spantype=macro title=#PatientSmokingStatus(ValueIfNu ll:Not recorded)>Smoking Tobacco : Current every day smoker; Smokeless Tobacco : Never used smokeless tobacco; Vaping : Never vaped</span>
<hr><span class=clinicalNoteSectionShBrayden clinicalNoteSectionVisible id=[id number]=false originalname=Depression recognizeconcepts=true spantype=section suppressempty=false>Depression Screening ToolStatus</span>
<span class=clinicalNoteMacroHighlighted id=[id number] macroname=DepressionStatus parameters=ValueIfNull:Not screened on today spantype=macro>Was screened; Outcome positive: No; Screening Date: 02/14/2023; Screening Tool: MD-PHQ2; Total depression score: 0</span>

<span class=clinicalNoteSectionShowScaseyarators clinicalNoteSectionVisible id="[id number] internalbreaksection=false originalname=Historyof Present Illness recognizeconcepts=true spantype=section suppressempty=false>History of Present Illness</span>
This is a very pleasant 53-year-old lady who was referred to me for evaluation of mild lymphocytosis. Her most recent CBC showed a white blood cell count of 13.5, with slightly increased lymphocyte count in the 5-6 range. Her other white blood cell differentials were normal. The patient reports no adenopathy or symptoms of splenomegaly. She did recently have an abdominal x-ray which showed hepatomegalyand mild splenomegaly measuring 13.7 cm. No fevers, chills, or night sweats. She has not been sick recently

She saw me on 02/14 for initial consultation. Additional labs were ordered at that time
<span class=clinicalNoteSectionShowSeparators clinicalNoteSectionVisible id=[id number] internalbreaksecti on=false originalname=Interval History recognizeconcepts=true sp antype=section suppressempty=false>Interval History</span>
The patient presents for a telemedicine follow-up visit. She does not report any new adenopathy, systemic symptoms, or symptoms of splenomegaly. Energy level and appetite are good.
<span class=clinicalNoteSectionShowSeparators clinicalNoteSectionVisible id=[id number] internalbreaksection=false originalname=Review of Systems recognizeconcepts=true spantype=section suppressempty="false>Review of Systems</span>
Remaining 14 point comprehensive reviewof systems within normal limits. NCCN Distress Thermometer and Problem List were collected and documented in the patient chart. Remarkable symptoms and concerns were discussed with the patient. Any additional follow-up is indicated in the plan.
<span class=clinicalNoteSectionShowSeparators clinicalNoteSectionVisible id=[id number]" internalbreaksection=false originalname=Medical History recognizeconcepts =true spantype=section suppressempty=false>Past Medical and Surgical History</span>
Noncontributory

<span style=font-size:12px><span style=font-family:[place],Helvetica,sans-serif></span></span>
<span class=clinicalNoteSectionShowSeparators clinicalNoteSectionVisible id=[id number] internalbreaksection=false originalnam e=Medications recognizeconcepts=true spantype=section suppressem pty=false>Current Medications</span>
<span class=clinicalNote MacroHighlighted id=[id number] macroname=MedicationsTable spantype=macro title=#MedicationsTable><table border=1 style=width:100%> <tbody> <tr> <td align=left colspan=2>Medication List</td> </tr> <tr> <th align=left>Name</th> <th align=left>Date</th> </tr> <tr> <td width= 60%>Ondansetron Oral</td> <td width=40%>02/14/2023</td> </tr> <tr> <td width=60%>Testosterone Topical Cream (Plosome Lecithin Organogel) 2.5%</td> <td width=40%>06/14/2020</td> </tr> <tr> <td width=60%>Levothyroxine Oral</td> <td width=40%>02/14/2023</td> </tr> <tr> <td width=60%>Phentermine Oral</td> <td width=40%>06/14/2020</td> </tr> <tr> <td width=60%&qu ot;>Vitamin D (Cholecalciferol Oral)</td> <td width=40%>06/14/2020</td> </tr> <tr> <td width=60%>Cyclobenzaprine Oral</td> <td width=40%>06/14/2020</td> </tr> <tr> <td width=60%>Meloxicam Oral</td> <td width=40%>02/14/2023</td> </tr> <tr> <td width=60%>Metformin Oral</td> <td width=40%>06/14/2020</td> </tr> <tr> <td width=60%>Ozempic (Semaglutide Subcutaneous Pen Injector)</td> <td width=40%>02/14/2023</td> </tr> &lt ;/tbody></table></span>
<span class=clinicalNoteSectionShowSeparators clinicalNoteSectionVisible id=[id number] internalbreaksection="false originalname=Allergies recognizeconcepts=true spantype=section suppressempty=false>Allergies</span>
<span class=&quo t;clinicalNoteMacroHighlighted id=[id number] macroname=Allergies& quot; parameters=ValueIfNull:No allergies recorded. spantype=macro title=&qu ot;#Allergies(ValueIfNull:No allergies recorded.)>No known medication allergies</span>
<span class=clinicalNoteSectionShowSeparators clinicalNoteSectionVisible id=[id number] internalbreaksection=false originalname=Family History recognizeconcepts=true spantype=section suppressempty="false>Family History</span>
Unremarkable

<span style=font-size:12px><span style=font-family:[place],Helvetica,sans-serif></span></span>
<span class=clinicalNoteSectionShowSeparators clinicalNoteSectionVisible id=[id number] internalbreaksection=false" originalname=Social History recognizeconcepts=true spantype=section suppressempty=false>Social History</span>
Current everyday smoker. No significant alcohol intake. Drives a truck for a [employer]

<span style=font-size:12px><span style=f ont-family:[place],Helvetica,sans-serif></span></span><span class=clinic alNoteSectionShowSeparators clinicalNoteSectionVisible id=[id number] internalbreaksection=false originalname=Vital Signs and Pain Scale recognizeconcepts=true spantype=section suppressempty=false>Vital Signs</span>
<span class=clinicalNoteMacrWVighpalo alto county hospitaled id=[id number] macroname=PatientVitalSigns parameters=LookBackDays:1,ValueIfNull:Not recorded on visit spantype=macro title=#PatientVitalSigns(LookBackDa ys:1,ValueIfNull:Not recorded on visit)>Blood pressure: Not recorded on visit, Pulse: Not recorded on visit, Temperature: Not recorded on visit, Respirations: Not recorded on visit, O2 sat: Not recorded on visit, Pain Scale: Not recorded on visit, Height: Not recorded on visit, Weight: Notrecorded on visit, BSA: Not recorded on visit, BMI: Not recorded on visit</span>
<span class=clinicalNoteMacrWVighpalo alto county hospitaled id=[id number] macroname= Immunizations spantype=macro title=#Immunizations>Covid-19 vaccine (Brian) (02/14/2023), Patient declined/rejected; Flu vaccine - Adult (2019), Patient declined/rejected; Flu vaccine - Adult (02/14/2023), Patient declined/rejected</span>
<span class=clinicalNoteSeReplaced by [facility] AnsonowSarators clinicalNoteSectionVisible id=[id number] internalbreaksection=false originalname=Performance Status" recognizeconcepts=true spantype=section suppressempty=false&quot ;>Performance Status ECOG or Karnofsky</span>
ECOG: <span class=clinicalN oteMacrWVighlighted id=[id number] macroname=ECOGStatus pa rameters=ValueIfNull:Not recorded spantype=macro title=#ECOGStatus(Sandi ueIfNull:Not recorded)>Not recorded</span>
Karnofsky: <span class=clinicalNoteMacroHighlighted id=[id number] macroname =KarnofskyStatus parameters=ValueIfNull:Not recorded spantype=macro" title=#RajeshnofskyStatus(ValueIfNull:Not recorded)>Not recorded</span><br& gt;
<span class=clinicalNoteSectionShowSeparators clinicalNoteSectionVisible id=[id number] internalbreaksection=false originalname=Physical Exam recognizeconcepts=true spantype=section suppressempty="false>Physical Exam</span>
Exam not performed. Telemedicine visit only
<span class=clinicalNoteSectionShowSeparators clinicalNoteSectionVisible" id=[id number] internalbreaksection=false originalname=&q uot;Genetics/Molecular/Biomarkers recognizeconcepts=true spantype=section&qu ot; suppressempty=false>Genetics/Molecular/Biomarkers</span>
<span class=clinicalNoteMacroHighlighted id=[id number] macroname= Problems parameters=ListType:Bulleted,PrincipalOnly:Yes spantype=macro title=#Problems(ListType:Bulleted,PrincipalOnly:Yes)> & lt;/span>
<span class=clinicalNoteSectionShowSeparators clinicalNoteSectionVisible id=[id number] internalbreaksection=false originalname=Additional Labs, Imaging and Other Studies recognizeconcepts=true spantype=section suppressempty=false>Additional Labs, Imaging, and Other Studies </span>

<span class=clinicalNoteSectionShowSeparators clinicalNote SectionVisible id=[id number] internalbreaksection=false originalname=Laboratory Results recognizeconcepts=true spantype=section suppressempty=false>Lab Results</span>
<span class=cl inicalNoteMacroHighlighted id=[id number] macroname=RecentLabRes ultsTable parameters=OptionalFlowsheetCategory:CBC,Label:CBC spantype=macro& quot; title=#RecentLabResultsTable(OptionalFlowsheetCategory:CBC,Label:CBC)>CBC<ta ble border=1 style=width:100%> <tbody> <tr> <th align="left>Lab Results</th> <td>02/14/2023</td> <td>12/31/2022</td> </tr> <tr> <th align=left> CBC</th> <td>
</td> <td>
</td> </tr> <tr> <td> WBC x 10^3/uL</td> <td>13.8 (H)</td> <td>
</td> </tr> <tr> <td> RBC x10^6/uL</td> <td>4.69</td> <td>
</td> </tr> <tr> <td> NRBC % /100 wbc</td> <td>0.0</td> <td>
</td> </tr> <tr> <td> HGB g/dL</td> <td>14.6</td> <td>
</td> </tr><tr> <td> HCT %</td> <td>44.9</td> <td>
</td> </tr> <tr> <td> MCV fL</td> <td>95.7</td> <td>
</td> </tr> <tr> <td> MCH pg</td> <td>31.1</td> <td>
</td> </tr> <tr> <td> MCHC g/dL</td> <td>32.5</td> <td>
</td> </tr> <tr> <td> RDW %</td> <td>13.00</td> <td>
</td> </tr> <tr> <td> PLT x 10^3/uL</td> <td>292</td> <td>
</td> </tr> <tr> <td> MPV fL</td> <td>9.0 (L)</td> <td>
</td> </tr> <tr> <td> Roxie %</td> <td>55.6</td> <td>
</td> </tr> <tr> <td> LY %</td> <td>38.2</td> <td>
</td> </tr> <tr> <td> MO %</td> <td>4.4 (L)</td> <td>
</td> </tr> <tr> <td> EO %</td> <td>0.9</td> <td>
</td> </tr> <tr> <td> IG %</td> <td>0.4</td> <td>
</td> </tr> <tr> <td> Roxie # (ANC) x 10^3/uL</td> <td>7.7 (H)</td> <td>
</td> </tr> <tr> <td> BA %</td> <td>0.5</td> <td>
</td> </tr> <tr> <td> MO # x 10^3/uL</td> <td>0.6</td> <td>
</td> </tr> <tr> <td> EO # x 10^3/uL</td> <td>0.1</td> <td>
</td> </tr> <tr> <td> BA # x10^3/uL</td> <td>0.1</td> <td>
</td> </tr> <tr><td> IG # x 10^3/uL</td> <td>0.05 (H)</td> <td>
</td> </tr> <tr> <td> LY # x 10^3/uL</td> <td>5.3 (H)</td> <td>
</td></tr> </tbody></table></span>
<span class=clinicalNoteMacroHighlighted id=[id number] macroname=RecentLabResultsTable parameters=OptionalFlowsheetCategory:Chemistries,Label:Chemistries spantype=macro" title=#RecentLabResultsTable(OptionalFlowsheetCategory:Chemistries,Label:Chemis tries)"></span>
<span class=clinicalNoteMacroHighlighted id=macro [id number] macroname=RecentLabResultsTable parameters=OptionalFlowshe etCategory:Tumor Markers,Label:Tumor Markers spantype=macro title=#RecentLab ResultsTable(OptionalFlowsheetCategory:Tumor Markers,Label:Tumor Markers)></span>
<span class=clinicalNoteMacroHighlighted id=[id number] macroname=RecentLabResultsTable parameters=OptionalFlowsheetCategory:Immunochemistries spantype=macro title=#RecentLabResultsTable(OptionalFlowsheetCategory:Im munochemistries)> </span>
<span class= clinicalNoteMacroHighlighted id=[id number] macroname=RecentLabR esultsTable parameters=OptionalFlowsheetCategory:AnemiaLabs spantype=macro&q uot; title=#RecentLabResultsTable(OptionalFlowsheetCategory:AnemiaLabs)><table border=1 style=width:100%> <tbody> <tr> <th align=left">Lab Results</th> <td>02/14/2023</td> <td>12/31/2022</td> </tr> <tr> <th align=left> Anemia Labs</th> <td>
</td> <td>
</td> </tr> <tr> <td> Reticulocyte count %</td> <td>1.14</td> <td&g t;
</td> </tr> <tr> <td> Reticulocyte, absolute x 10^6/mL</td> <td>0.05</td> <td>
</td> </tr> <tr> <td> Immature reticulocyte fraction, %</td> <td>8.70</td> <td>
</td> </tr> <tr> <td> Reticulocyte cellular hemoglobin pg</td> <td>36.5</td> <td>
</td> </tr> </tbody></table>&lt ;/span>
<span class=clinicalNoteSectionShowSeparators clinicalNoteSectionVisible id=[id number] internalbreaksection=false originalname=Surveys/Consents/Other Discussions recognizeconcepts=true spantype=section suppressempty=false>Surveys/Consents/Other Discussions</span>

<hr>
<strong>Mango Manzo MD</strong>
<span class=clinicalNoteMacroHighlighted id=[id number] macroname =LocationPhoneNumber parameters=Label:Phone: spantype=macro tit le=#LocationPhoneNumber(Label:Phone: )> </span>
<span class=clinicalNoteMacroHighlighted id=[id number] macroname= LocationFaxNumber parameters=Label:Fax: spantype=macro title=&q uot;#LocationFaxNumber(Label:Fax: )> </span>

CC: & lt;span class=clinicalNoteMacroHighlighted id=[id number] macrona me=NoteRecipients spantype=macro title=#NoteRecipients>FAX
Rochelle Wiley PA-C (Referring)
Dorota Alfaro DNP (Referring)</span>&lt ;br>
<div style=text-align:center>
</div></div>

<div><span class=eSignSignature>Electronically signed by Mango Manzo MD 02/24/2023 16:06 CDT</span></div></body></html>
--- OUTSIDE RECORDS SUMMARY | 2025-04-01 20:08 | XMS_ITS ---
Author Name Interface, [id number] lity Address [address] [address] [facility] Address [address] [facility] [address] [address] Support Name Relationship Address Phone Jurgen Trinidad Spouse Unknown Unavailabl e Allergies and Adverse Reactions Medication/Group Name Reaction Severity Date No known allergies Plan Date Type Value 02/22/[address] [facility] PATIENT 20 MIN 02/14/2023 APPOINTMENT LAB 10 MIN 02/14/2023 APPOINTMENT NEW PT CONSULT 6 0 MIN 06/14/2020 APPOINTMENT ESCROW ASSISTANT - BREAST REDU CTION - BREAST [...] Lab Address 12/31 Misc other lab See broadcast systems engineer d 02/14 Path perip heral blood slide revie w panel Patho logy/ Cytol ogy Morph ology SEE RESULTS BELOW CASE REPORTSpe cial Hematolog y Report Case: [id number] ing Provider: Mango Manzo MD Collected :02/15/20 23 1447Order ing Location: [facility] Received: 2118Patho logist: Raad [...] AND DIFFERENT IALHEMATO LOGY PARAMETER STested at: [facility]-Central Laborator yRESULTS EXPECTED VALUESWBC [...] ent of LymphsB cells: 9.5%T cells: 82.1%CD19 +/[place]: 5.4%CD19+ /Lambda: 4.0%[place] :Lambda ratio: 1.4B lymphocyt es in this analysis demonstra te normal qualitati ve expressio n of thefollow ing antigens: CD2, CD3, CD5, CD10, CD19, CD20, CD22, CD23, CD38, CD43,CD45 , CD79b, CD103, CD200, [place] and Lambda surface light chains.Qu ality Assessmen [...] T cell events: 4007Nucle ated cells analyzed: 26224Motx t of detection (LOD): 0.4%These results and cytograms have been verified by Dr. Perez.Th is test was developed and its performan ce character istics verified by [facility]. It has not been cleared or approved by the [place] Food and DrugAdmin istration . This test is used for clinical purposes and should not beregarde d as investiga tional or for research. Analytic Flow Tech: Nadege CheathamDevorahAyad acenick, 02/15/2023 1:28 PMVerifyi ng Flow Tech: Jc Jaffelli , 02/15/2023 4:24 PMADDITIO NAL INFORMATI ONInterpr eted at [facility] - [address] [id number] FINAL Mango Manzo 02/14 WBC K/uL 3.0 8.9 13.8 High FINAL [facility] [place], [address] [place] [phone] 0 Phone: () - 02/14 HGB g/dL 11.3 15.2 14.6 FINAL [facility] [place], [address] [place] [id number] 0 Phone: () - 02/14 PLT K/uL 113.0 364.0 292 FINAL [facility] - [place], [address] [place] [phone] 0 Phone: () - 02/14 Roxie % % 43.0 74.0 55.6 FINAL [facility] - [place], [address] [place] [phone] 0 Phone: () - 02/14 Roxie # (ANC) K/uL 1.6 6.6 7.7 High FINAL [facility] [place], [address] [place] [phone] 0 Phone: () - 02/14 IG % % 0.0 0.5 0.4 FINAL [facility] - [place], [address] [place] [phone] 0 Phone: () - 02/14 IG # K/uL 0.0 0.03 0.05 High FINAL [facility] - [place], [address] [place] [phone] 0 Phone: () - 02/14 LY % % 14.0 41.0 38.2 FINAL [facility] [place], [address] [place] [id number] 0 Phone: () - 02/14 MO % % 6.0 15.0 4.4 Low FINAL [facility] - [place], [address] [place] [phone] 0 Phone: () - 02/14 EO % % 0.0 7.0 0.9 FINAL [facility] - [place], [address] [place] [id number] 0 Phone: () - 02/14 BA % % 0.0 2.0 0.5 FINAL [facility] - [place], [address] [place] [phone] 0 Phone: () - 02/14 LY # K/uL 0.4 3.6 5.3 High FINAL [facility] - [place], [address] [place] [phone] 0 Phone: () - 02/14 MO # K/uL 0.2 1.3 0.6 FINAL [facility] - [place], [address] [place] [phone] 0 Phone: () - 02/14 EO # K/uL 0.0 0.6 0.1 FINAL [facility] - [place], [address] [place] [phone] 0 Phone: () - 02/14 BA # K/uL 0.0 0.2 0.1 FINAL [facility] - [place], [address] [place] [phone] 0 Phone: () - 02/14 NRBC % #/100W BC 0.0 0.2 0.0 FINAL [facility] - [place], [address] [place] [id number] 0 Phone: () - 02/14 RBC M/uL 3.9 5.1 4.69 FINAL [facility] - [place], [address] [place] [id number] 0 Phone: () - 02/14 HCT % 35.0 48.0 44.9 FINAL [facility] - [place], [address] [place] [id number] 0 Phone: () - 02/14 MCV fL 80.0 104.0 95.7 FINAL [facility] - [place], [address] [place] [id number] 0 Phone: () - 02/14 MCH pg 26.0 35.0 31.1 FINAL [facility] - [place], [address] [place] [phone] 0 Phone: () - 02/14 MCHC g/dL 30.0 35.0 32.5 FINAL [facility] [place], [address] [place] [id number] 0 Phone: () - 02/14 MPV fL 9.5 13.4 9.0 Low FINAL [facility] - [place], [address] [place] [id number] 0 Phone: () - 02/14 RDW % 11.4 16.1 13.00 FINAL [facility] - [place], [address] [place] [id number] 0 Phone: () - 02/14 Retic ulocy te, absol benny M/uL 0.02 0.08 0.05 FINAL [facility] - [place], [address] [place] [phone] 0 Phone: () - 02/14 Retic ulocy te count % 0.4 1.6 1.14 FINAL [facility] [place], [address] [place] [id number] 0 Phone: () - 02/14 Immat ure retic ulocy te fract ion, % % 0.0 16.5 8.70 FINAL [facility] - [place], [address] [place] [phone] 0 Phone: () - 02/14 Retic ulocy te cellu lar hemog lobin pg 28.0 37.0 36.5 FINAL [facility] - [place], [address] [place] [phone] 0 Phone: () - Medications Date Name [...]
--- OUTSIDE RECORDS SUMMARY | 2025-04-01 20:08 | XMS_ITS ---
Author Name Interface, [id number] lity Address [address] [facility] [address] [address] [facility] Address [address] [facility] [address] [address] Support Name Relationship Address Phone Jurgen Trinidad [...] style=text-align:center><span class=clinicalNoteMacroHighlighted id=[id number] macroname= PracticeLetterhead spantype=macro title=#PracticeLetterhead><img mlxqov=531 [id number]" uamcn=709></span>
</div>
<strong>Patient Name</strong>: <span class=clinicalNoteMacroHighlighted id=[id number] macroname=PatientName [...] adenopathy, or symptoms of splenomegaly.

<span style=font-size:12px><span style=font-family:Apison,Helvetica,sans-serif></span></span>
<span class=clinicalNoteSectionShowSeparators clinicalNoteSectionVisible id=[id number] internalbreaksection=false" originalname=Med Onc [...] Medical and Surgical History</span>
Noncontributory

<span style=font-size:12px><span style=font-family:Apison,Helvetica,sans-serif></span></span>
<span class=clinicalNoteSectionShowSeparators clinicalNoteSectionVisible id=[id number] internalbreaksection=false originalnam e=Medications [...] recognizeconcepts=true spantype=section suppressempty="false>Family History</span>
Unremarkable

<span style=font-size:12px><span style=font-family:Apison,Helvetica,sans-serif></span></span>
<span class=clinicalNoteSectionShowSeparators clinicalNoteSectionVisible id=[id number] internalbreaksection=false" originalname=Social History recognizeconcepts=true spantype=section suppressempty=false>Social History</span>
Current everyday smoker. No significant alcohol intake. 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

<span style=font-size:12px><span style=f ont-family:Apison,Helvetica,sans-serif></span></span><span class=clinic alNoteSectionShowSeparators clinicalNoteSectionVisible id=[id number] internalbreaksection=false originalname=Vital Signs and Pain Scale recognizeconcepts=true spantype=section suppressempty=false>Vital Signs</span>
<span class=clinicalNoteMacrALighunitypoint health-saint luke's hospitaled id=[id number] macroname=PatientVitalSigns parameters=LookBackDays:1,ValueIfNull:Not recorded on visit [...] visit, BMI: Not recorded on visit</span>
<span class=clinicalNoteMacrALighunitypoint health-saint luke's hospitaled id=[id number] macroname= Immunizations spantype=macro title=#Immunizations>Covid-19 vaccine (Brian) (02/14/2023), Patient declined/rejected; Flu vaccine - Adult (2019), Patient declined/rejected; Flu vaccine - Adult (02/14/2023), Patient declined/rejected</span>
<span class=clinicalNoteSeFormerly [facility] CenterowSarators clinicalNoteSectionVisible id=[id number] internalbreaksection=false originalname=Performance Status" recognizeconcepts=true spantype=section suppressempty=false&quot ;>Performance Status ECOG or Karnofsky</span>
ECOG: <span class=clinicalN oteMacrALighlighted id=[id number] macroname=ECOGStatus pa rameters=ValueIfNull:Not recorded spantype=macro title=#ECOGStatus(Sandi [...]
<div style=text-align:center>
</div></div>

<div><span class=eSignSignature>Electronically signed by Mnago Manzo MD 02/24/2023 16:06 CDT</span></div></body></html>
== END 2025-04-01 20:08 | disposition home or self-care (01) ==
PROVIDERS: Emergency Provider Student in an Organized Health Care Education/Training Program
DX: K04.7 Periapical abscess without sinus (principal); G58.9 Mononeuropathy, unspecified; F17.210 Nicotine dependence, cigarettes, uncomplicated
CPT/HCPCS: 99283; 99284